=== PATIENT | male | born 1995 | race African-American/Black ===

== ENCOUNTER 2020-12-09 00:19 | Inpatient (IN) | payer OTHER ==
[~2020-12-09] VITALS: Ht 180.3 cm; Wt 73.9 kg
[2020-12-09] MEDS: MORPHINE SULFATE 2 MG/ML INJ. IV PRN ×5 (02:16→19:37)
[2020-12-09] MEDS ORDERED: ONDANSETRON PF 4 MG/2 ML VIAL. IVP PRN (02:30)
[2020-12-09] MEDS: AA 4.25 %/CALCIUM/LYTES/D5W 1,000 ML IV SCH ×2 (02:39→19:37)
[2020-12-09 03:00] VITALS: BP 128/73
[2020-12-09] MEDS ORDERED: PANTOPRAZOLE IV PUSH 40 MG VIAL. IVP ONE (04:00)
--- NOTE | 2020-12-09 06:32 | PDOC1 ---
History and Physical Date of Admission Date of Admission DATE: 12/09/20 TIME: 06:23 Identification/Chief Complaint Chief Complaint Abdominal pain Source Source: Chart review, Patient History of Present Illness History of Present Illness Patient is 25-year-old male with past medical history HIV, presents as a transfer from [facility] due to perforated gastric ulcer. He reports right upper quadrant and epigastric pain over the past 3 days, with associated nausea and vomiting. He states his pain is aggravated by movement. He initially took Tylenol for symptoms without improvement. Upon arrival in [facility] ER he was given morphine and IV fluids. Initial imaging with CT abdomen/pelvis showed moderate volume of pneumoperitoneum in the upper abdomen, suspicious for perforated gastric or duodenal ulcer. General surgery was notified at [facility], and patient was accepted in transfer for higher level of care. Past Medical History Past Medical History HIV, depression Past Surgical History Past Surgical History Reviewed with patient but denies surgical history Family History Family History Reviewed with patient but denies significant family history Social History Smoke: <1 pack per day ALCOHOL: occassional Drugs: None, Marijuana Current Medications Current Medications Current Medications Morphine Sulfate (Morphine Sulfate) 2 mg PRN Q2HR PRN IV MODERATE PAIN 4-6; Start 12/09/20 at 02:00 Morphine Sulfate (Morphine Sulfate) 4 mg PRN Q4HRS PRN IV SEVERE PAIN 7-10 Last administered on 12/09/20at 02:16; Start 12/09/20 at 02:00 Amino Acids/ Electrolytes/ Dextrose 1,000 ml @ 80 mls/hr [id number] IV Last administered on 12/09/20at 02:39; Start 12/09/20 at 02:00 Ondansetron HCl (Zofran) 4 mg PRN Q6HRS PRN IVP NAUSEA/VOMITING 1ST CHOICE Last administered on 12/09/20at 02:38; Start 12/09/20 at 02:30 Pantoprazole Sodium (PROTONIX VIAL for IV PUSH) 40 mg DAILYAC IVP ; Start 12/09 at 07:30 Pantoprazole Sodium (PROTONIX VIAL for IV PUSH) 40 mg 1X ONCE IVP Last administered on 12/09/20at 04:59; Start 12/09/20 at 04:00; Stop 12/09/20 at 04:01; Status DC Levofloxacin/ Dextrose 100 ml @ 100 mls/hr DAILY05 IV Last administered on 12/09/20at 06:20; Start 12/09/20 at 04:00 Metronidazole 100 ml @ 100 mls/hr Q12HR IV ; Start 12/09/20 at 09:00 Metronidazole 100 ml @ 100 mls/hr 1X ONCE IV Last administered on 12/09/20at 04:51; Start 12/09/20 at 04:00; Stop 12/09/20 at 04:59; Status DC Allergies Allergies: Coded Allergies: penicillin V (Verified Allergy, Intermediate, Hives, 12/09/20) ROS Review of System GENERAL: No history of weight change, weakness or fevers. SKIN: No bruising, hair changes or rashes. EYES: No blurred, double or loss of vision. NOSE AND THROAT: No history of nosebleeds, hoarseness or sore throat. HEART: Denies chest pain, denies palpitations. LUNGS: Denies cough, hemoptysis, wheezing or shortness of breath. GASTROINTESTINAL: Abdominal pain, nausea, vomiting. Denies diarrhea. GENITOURINARY: Denies dysuria, frequency, urgency, hematuria. NEUROLOGIC: Denies history of numbness, tingling, tremor or weakness. PSYCHIATRIC: Denies anxiety, denies depression. ENDOCRINE: No history of heat or cold intolerance, polyuria or polydipsia. EXTREMITIES: Denies muscle weakness, joint pain, pain on walking or stiffness. Physical Exam Physical Exam General: Alert, Oriented X3, Cooperative, moderate distress. HEENT: PERRLA, EOMI Lungs: Clear to auscultation, Normal air movement Heart: RRR, no murmurs Cardiovascular: S1, S2 Abdomen: Epigastric and right upper quadrant tenderness. Normal bowel sounds. Extremities: No clubbing, No cyanosis Skin: No rashes, No significant lesion Neuro: Normal speech, Normal tone, Sensation intact Psych/Mental Status: Mental status NL, Mood NL Vitals Vitals Vital Signs Date Time Temp Pulse Resp B/P (MAP) Pulse Ox O2 Delivery O2 Flow Rate FiO2 12/09/20 03:00 98.2 76 18 128/73 (91) 98 Room Air 98.2 Images Images [address] [address] IMAGING REPORT Signed PATIENT: NEERU CASILLAS ACCOUNT: [id number] : 1995 LOCATION: ER AGE: 25 SEX: M EXAM STATUS: REG ER ORD. PHYSICIAN: FABIAN HAN APRN REASON: abd pain PROCEDURE: CT ABDOMEN PELVIS WO CONTRAST Exam: CT abdomen/pelvis without intravenous contrast Indication: Abdominal pain Comparison: None Technique: Helical CT imaging performed of the abdomen and pelvis without the use of intravenous contrast. Sagittal and coronal reformats were obtained. One or more of the following individualized dose reduction techniques were utilized for this examination: 1. Automated exposure control 2. Adjustment of the mA and/or kV according to patient size 3. Use of iterative reconstruction technique. Findings: Inherently limited evaluation without intravenous contrast. Lower chest: Lung bases are clear. Heart is normal in size. Liver: Normal noncontrast appearance of the liver. Gallbladder/Biliary Tree: Normal. Pancreas: Normal. Spleen: Normal. Adrenal Glands: Normal Kidneys/Ureters/Bladder: Normal. Reproductive Organs: Normal. Stomach, small bowel, and colon: Moderate pneumoperitoneum in the upper abdomen, greatest anterior to the liver anterior upper abdomen. There is some free air extending along the gastrohepatic ligament and first portion of the duodenum. There is wall thickening and a small amount of fluid along the gastric antrum and first portion of the duodenum. No evidence of small bowel obstruction. Appendix is normal. Colon is normal in appearance. There is no pneumoperitoneum. Vasculature: No aortic aneurysm. Lymph Nodes: No lymphadenopathy. Peritoneum and retroperitoneum: Pneumoperitoneum, as above. Small amount of fluid in the upper abdomen. Bones: No acute osseous abnormality. IMPRESSION: 1. Moderate volume of pneumoperitoneum in the upper abdomen. Suspect perforated gastric or duodenal ulcer as there is wall thickening and small amount of fluid along the gastric antrum and first portion of the duodenum. 2. Results discussed by Dr. Nava with Martha Han in the ER at 9:50 PM on 12/08/2020 VTE Prophylaxis Ordered VTE Prophylaxis Devices: No VTE Pharmacological Prophylaxi: Yes Assessment/Plan Assessment/Plan Perforated gastric ulcer History HIV Plan: Consultation placed to general surgery We will continue to provide pain medication and antiemetics We will keep n.p.o. barring general surgery evaluation for possible surgical intervention We will also place consult to GI FEN - NPO PPX - Heparin FULL CODE Dispo - inpatient for above Justifications for Admission Other Justification WILFRED KING MD Dec 09, 2020 06:32
[2020-12-09 07:00] VITALS: BP 120/84
[2020-12-09] MEDS ORDERED: ACETAMINOPHEN 325 MG TABLET. PO PRN (07:30)
[2020-12-09] MEDS ORDERED: CALCIUM CARBONATE 500 MG TAB.CHEW PO PRN (07:30)
[2020-12-09] MEDS ORDERED: MAGNESIUM HYDROXIDE 2,400 MG/30 ML ORAL.SUSP. PO PRN (07:30)
[2020-12-09] MEDS ORDERED: MAG HYDROX/ALUMINUM HYD/SIMETH 30 ML ORAL.SUSP PO PRN (07:30)
[2020-12-09 07:41] LABS: BASO % 0 % (0-3); EOS # 0.3 x10^3/uL (0.0-0.7); EOS % 3 % (0-3); HEMATOCRIT 35.8 % (39.0-53.0); HEMOGLOBIN 11.9 g/dL (13.0-17.5); LYMPH # 1.8 x10^3/uL (1.0-4.8); LYMPH % 21 % (24-48); MEAN CORPUSCULAR HEMOGLOBIN 31 pg (25-35); MEAN CORPUSCULAR HGB CONC 33 g/dL (31-37); MEAN CORPUSCULAR VOLUME 93 fL (79-100); MONO # 0.9 x10^3/uL (0.0-1.1); MONO % 11 % (0-9); NEUT # 5.4 x10^3/uL (1.8-7.7); NEUT % 65 % (31-73); PLATELET COUNT 183 x10^3/uL (140-400); RED BLOOD COUNT 3.83 x10^6/uL (4.30-5.70); WHITE BLOOD COUNT 8.4 x10^3/uL (4.0-11.0)
[2020-12-09] MEDS: PANTOPRAZOLE IV PUSH 40 MG VIAL. IVP SCH (07:43)
[2020-12-09 07:55] LABS: CALCIUM 8.3 mg/dL (8.5-10.1); GFR 110.2; POTASSIUM 3.6 mmol/L (3.5-5.1)
[2020-12-09 08:30] LABS: PROTHROMBIN TIME PATIENT 13.4 SEC (11.7-14.0)
[2020-12-09] MEDS ORDERED: PROPOFOL 10 MG/ML (20ML) VIAL. IV ONE ×2 (08:30→10:52)
[2020-12-09] MEDS ORDERED: LIDOCAINE 2% PF 5 ML VIAL. ONE (08:31)
[2020-12-09] MEDS ORDERED: ROCURONIUM 50 MG/5 ML VIAL. ONE (08:31)
[2020-12-09] MEDS ORDERED: ONDANSETRON PF 4 MG/2 ML VIAL. ONE (08:31)
[2020-12-09] MEDS ORDERED: DEXAMETHASONE SOD PHOS 4 MG/ML VIAL ONE (08:31)
--- NOTE | 2020-12-09 09:13 | PDOC2 ---
GI CONSULT Date of Service: DATE: 12/09/20 TIME: 09:03 Reason For Consult: perforated ulcer HPI: HPI: 25 y/o male sent from [facility]. Upper abdominal pain awoke from sleep on Monday night. Associated w/ some nausea and vomiting though was able to eat some salad and beef jerky on Monday. Pain is worse when "the cold air hits it" and is now located more diffusely throughout abdomen. No similar symptoms in the past. At [facility]: WBC 10.5, Hgb 12.8, BUN 11, Cr 1.2, normal LFTs and lipase, negative COVID. CT showed moderate volume pneumoperitoneum in upper abdomen with wall thickening and small amount of fluid along the gastric antrum and first portion of the duodenum. He says he is scheduled for surgery at 2:00 p.m. today. Denies reflux/heartburn, dysphagia, diarrhea, hematemesis, hematochezia, melena, and weight loss. Might have been constipated recently (last stool on Monday). No previous EGD or colonoscopy. No h/o GB, liver, pancreas, or PUD history. Occasional ibuprofen for headaches and joint pains. H/o HIV on treatment - undetectable on 10/16/20. PMH: PMH: HIV, depression, eye surgery FH: Family History: No pertinent hx (denies PUD, IBD, GI cancers) Social History: Smoke: <1 pack per day ALCOHOL: occassional Drugs: Marijuana, Other (past meth) ROS: GEN: Denies fevers, chills, sweats HEENT: Denies blurred vision, sore throat CV: Denies chest pain RESP: Denies shortness of air, cough GI: Per HPI : Denies hematuria, dysuria ENDO: Denies weight changes NEURO: Denies confusion, dizziness MSK: Denies weakness, joint pain/swelling SKIN: Denies jaundice, pruritus Vitals: Vitals: Vital Signs Date Time Temp Pulse Resp B/P (MAP) Pulse Ox O2 Delivery O2 Flow Rate FiO2 12/09/20 07:00 99.3 79 18 120/84 (96) 98 Room Air 99.3 Labs: Labs: Laboratory Tests Test 12/09/20 06:35 12/09/20 08:00 White Blood Count 8.4 x10^3/uL (4.0-11.0) Red Blood Count 3.83 x10^6/uL (4.30-5.70) Hemoglobin 11.9 g/dL (13.0-17.5) Hematocrit 35.8 % (39.0-53.0) Mean Corpuscular Volume 93 fL (79-100) Mean Corpuscular Hemoglobin 31 pg (25-35) Mean Corpuscular Hemoglobin Concent 33 g/dL (31-37) Red Cell Distribution Width 14.0 % (11.5-14.5) Platelet Count 183 x10^3/uL (140-400) Neutrophils (%) (Auto) 65 % (31-73) Lymphocytes (%) (Auto) 21 % (24-48) Monocytes (%) (Auto) 11 % (0-9) Eosinophils (%) (Auto) 3 % (0-3) Basophils (%) (Auto) 0 % (0-3) Neutrophils # (Auto) 5.4 x10^3/uL (1.8-7.7) Lymphocytes # (Auto) 1.8 x10^3/uL (1.0-4.8) Monocytes # (Auto) 0.9 x10^3/uL (0.0-1.1) Eosinophils # (Auto) 0.3 x10^3/uL (0.0-0.7) Basophils # (Auto) 0.0 x10^3/uL (0.0-0.2) Sodium Level 142 mmol/L (136-145) Potassium Level 3.6 mmol/L (3.5-5.1) Chloride Level 107 mmol/L (98-107) Carbon Dioxide Level 25 mmol/L (21-32) Anion Gap 10 (6-14) Blood Urea Nitrogen 8 mg/dL (8-26) Creatinine 1.0 mg/dL (0.7-1.3) Estimated GFR (Cockcroft-Gault) 110.2 Glucose Level 88 mg/dL (70-99) Calcium Level 8.3 mg/dL (8.5-10.1) Prothrombin Time 13.4 SEC (11.7-14.0) Prothromb Time International Ratio 1.0 (0.8-1.1) Activated Partial Thromboplast Time 39 SEC (24-38) Allergies: Coded Allergies: penicillin V (Verified Allergy, Intermediate, Hives, 12/09/20) Medications: Current Medications Medications (Trade) Dose Ordered Sig/Umesh Route PRN Reason Start Time Stop Time Status Last Admin Dose Admin Morphine Sulfate (Morphine Sulfate) 2 mg PRN Q2HR PRN IV MODERATE PAIN 4-6 12/09/20 02:00 12/09/20 07:43 Morphine Sulfate (Morphine Sulfate) 4 mg PRN Q4HRS PRN IV SEVERE PAIN 7-10 12/09/20 02:00 12/09/20 02:16 Amino Acids/ Electrolytes/ Dextrose 1,000 ml @ 80 mls/hr [id number] IV 12/09/20 02:00 12/09/20 02:39 Ondansetron HCl (Zofran) 4 mg PRN Q6HRS PRN IVP NAUSEA/VOMITING 1ST CHOICE 12/09/20 02:30 12/09/20 02:38 Pantoprazole Sodium (PROTONIX VIAL for IV PUSH) 40 mg DAILYAC IVP 12/09/20 07:30 12/09/20 07:43 Pantoprazole Sodium (PROTONIX VIAL for IV PUSH) 40 mg 1X ONCE IVP 12/09/20 04:00 12/09/20 04:01 DC 12/09/20 04:59 Levofloxacin/ Dextrose 100 ml @ 100 mls/hr DAILY05 IV 12/09/20 04:00 12/09/20 06:20 Metronidazole 100 ml @ 100 mls/hr Q12HR IV 12/09/20 09:00 12/09/20 07:43 Metronidazole 100 ml @ 100 mls/hr 1X ONCE IV 12/09/20 04:00 12/09/20 04:59 DC 12/09/20 04:51 Imaging: Imaging: see HPI PE: GEN: was sleeping, some discomfort obvious upon waking HEENT: Atraumatic, PERRL LUNGS: CTAB HEART: RRR ABD: BS+, some distention, upper abdomen tender to light touch EXTREMITY: No edema SKIN: No rashes, no jaundice NEURO/PSYCH: A & O 3 A/P: A/P: Upper abdominal pain - acute onset 12/05 Mild anemia Pneumoperitoneum, possible /DU CRC screen - average risk H/o HIV Occasional NSAID -- Plans for OR. On IV PPI. Agree - will follow. LATONYA SMITH Dec 09, 2020 09:13
[2020-12-09] MEDS ORDERED: fentaNYL PF VIAL 100 MCG/2 ML VIAL ONE ×2 (09:20→10:27)
[2020-12-09] MEDS ORDERED: MIDAZOLAM HCL/PF 2 MG/2 ML VIAL. ONE (09:21)
--- NOTE | 2020-12-09 10:03 | PDOC2 ---
CONSULT Date of Consult Date of Consult DATE: 12/09/20 TIME: 10:00 Reason for Consult Reason for Consult: Abdominal pain abnormal CT scan Referring Physician Referring Physician: Oscar Identification/Chief Complaint Chief Complaint Abdominal pain Source Source: Chart review, Patient History of Present Illness Reason for Visit: 25-year-old male who woke up from sleep on Monday night with abdominal pain progressively worsening over the weekend and into the first part of the week became too unbearable and came to the emergency department further evaluation. He has been taking nonsteroidal anti-inflammatories for the past several days denies any history of ulcers. Some nausea no vomiting. History of HIV. Evaluation in the emergency department CT scan was performed which showed pneumoperitoneum with inflammation in and around the duodenum and stomach consistent with a perforated ulcer. Past Medical History Infectious disease: HIV Past Surgical History Past Surgical History: No pertinent history Family History Family History: No Significant Social History <1 pack per day ALCOHOL: occassional Drugs: Marijuana, Other (past meth) Current Medications Current Medications Current Medications Morphine Sulfate (Morphine Sulfate) 2 mg PRN Q2HR PRN IV MODERATE PAIN 4-6 Last administered on 12/09/20at 07:43; Start 12/09/20 at 02:00 Morphine Sulfate (Morphine Sulfate) 4 mg PRN Q4HRS PRN IV SEVERE PAIN 7-10 Last administered on 12/09/20 02:16; Start 12/09/20 at 02:00 Amino Acids/ Electrolytes/ Dextrose 1,000 ml @ 80 mls/hr [id number] IV Last administered on 12/09/20 02:39; Start 12/09/20 at 02:00 Ondansetron HCl (Zofran) 4 mg PRN Q6HRS PRN IVP NAUSEA/VOMITING 1ST CHOICE Last administered on 12/09/20at 02:38; Start 12/09/20 at 02:30 Pantoprazole Sodium (PROTONIX VIAL for IV PUSH) 40 mg DAILYAC IVP Last administered on 12/09/20 07:43; Start 12/09/20 at 07:30 Pantoprazole Sodium (PROTONIX VIAL for IV PUSH) 40 mg 1X ONCE IVP Last administered on 12/09/20at 04:59; Start 12/09/20 at 04:00; Stop 12/09/20 at 04:01; Status DC Levofloxacin/ Dextrose 100 ml @ 100 mls/hr DAILY05 IV Last administered on 12/09/20at 06:20; Start 12/09/20 at 04:00 Metronidazole 100 ml @ 100 mls/hr Q12HR IV Last administered on 12/09/20at 07:43; Start 12/09/20 at 09:00 Metronidazole 100 ml @ 100 mls/hr 1X ONCE IV Last administered on 12/09/20at 04:51; Start 12/09/20 at 04:00; Stop 12/09/20 at 04:59; Status DC Ondansetron HCl (Zofran) 4 mg PRN Q6HRS PRN IVP NAUSEA/VOMITING; Start 12/09/20 at 07:30 Al Hydroxide/Mg Hydroxide (Mylanta Plus Xs) 30 ml PRN Q3HRS PRN PO HEARTBURN / GAS; Start 12/09/20 at 07:30 Calcium Carbonate/ Glycine (Tums) 500 mg PRN Q3HRS PRN PO UPSET STOMACH; Start 12/09/20 at 07:30 Zolpidem Tartrate (Ambien) 5 mg PRN QHS PRN PO INSOMNIA, MAY REPEAT IN 1HR; Start 12/09/20 at 07:30 Acetaminophen (Tylenol) 650 mg PRN Q6HRS PRN PO Headaches, Temp > 101.5F; Start 12/09/20 at 07:30 Magnesium Hydroxide (Milk Of Magnesia) 2,400 mg PRN Q12HR PRN PO CONSTIPATION; Start 12/09/20 at 07:30 Heparin Sodium (Porcine) (Heparin Sodium) 5,000 unit Q8HRS SQ ; Start 12/09/20 at 14:00 Propofol (Diprivan) 200 mg STK-MED ONCE IV ; Start 12/09/20 at 08:30; Stop 12/09/20 at 08:31; Status DC Lidocaine HCl (Lidocaine Pf 2% Vial) 5 ml STK-MED ONCE .ROUTE ; Start 12/09/20 at 08:31; Stop 12/09/20 at 08:31; Status DC Dexamethasone Sodium Phosphate (Decadron) 4 mg STK-MED ONCE .ROUTE ; Start 12/09/20 at 08:31; Stop 12/09/20 at 08:31; Status DC Ondansetron HCl (Zofran) 4 mg STK-MED ONCE .ROUTE ; Start 12/09/20 at 08:31; Stop 12/09/20 at 08:31; Status DC Rocuronium [place] (Zemuron) 50 mg STK-MED ONCE .ROUTE ; Start 12/09/20 at 08:31; Stop 12/09/20 at 08:31; Status DC Fentanyl Citrate (Fentanyl 2ml Vial) 100 mcg STK-MED ONCE .ROUTE ; Start 12/09/20 at 09:20; Stop 12/09/20 at 09:21; Status DC Midazolam HCl (Versed) 2 mg STK-MED ONCE .ROUTE ; Start 12/09/20 at 09:21; Stop 12/09/20 at 09:21; Status DC Allergies Allergies: Coded Allergies: penicillin V (Verified Allergy, Intermediate, Hives, 12/09/20) ROS Gastrointestinal: Yes Nausea, Yes Abdominal Pain Physical Exam General: Alert, Oriented X3, Cooperative, moderate distress HEENT: Atraumatic, EOMI Lungs: Clear to auscultation, Normal air movement Heart: Regular rate, No murmurs Abdomen: Soft, Other (Diffusely tender to palpation no peritoneal signs hypoactive bowel sounds) Extremities: No edema Skin: No significant lesion Neuro: Normal speech Psych/Mental Status: Mental status NL Vitals VITALS Vital Signs Date Time Temp Pulse Resp B/P (MAP) Pulse Ox O2 Delivery O2 Flow Rate FiO2 12/09/20 09:51 100.3 79 15 133/69 97 Room Air 100.3 Labs Labs Laboratory Tests Test 12/09/20 06:35 12/09/20 08:00 White Blood Count 8.4 x10^3/uL (4.0-11.0) Red Blood Count 3.83 x10^6/uL (4.30-5.70) Hemoglobin 11.9 g/dL (13.0-17.5) Hematocrit 35.8 % (39.0-53.0) Mean Corpuscular Volume 93 fL (79-100) Mean Corpuscular Hemoglobin 31 pg (25-35) Mean Corpuscular Hemoglobin Concent 33 g/dL (31-37) Red Cell Distribution Width 14.0 % (11.5-14.5) Platelet Count 183 x10^3/uL (140-400) Neutrophils (%) (Auto) 65 % (31-73) Lymphocytes (%) (Auto) 21 % (24-48) Monocytes (%) (Auto) 11 % (0-9) Eosinophils (%) (Auto) 3 % (0-3) Basophils (%) (Auto) 0 % (0-3) Neutrophils # (Auto) 5.4 x10^3/uL (1.8-7.7) Lymphocytes # (Auto) 1.8 x10^3/uL (1.0-4.8) Monocytes # (Auto) 0.9 x10^3/uL (0.0-1.1) Eosinophils # (Auto) 0.3 x10^3/uL (0.0-0.7) Basophils # (Auto) 0.0 x10^3/uL (0.0-0.2) Sodium Level 142 mmol/L (136-145) Potassium Level 3.6 mmol/L (3.5-5.1) Chloride Level 107 mmol/L (98-107) Carbon Dioxide Level 25 mmol/L (21-32) Anion Gap 10 (6-14) Blood Urea Nitrogen 8 mg/dL (8-26) Creatinine 1.0 mg/dL (0.7-1.3) Estimated GFR (Cockcroft-Gault) 110.2 Glucose Level 88 mg/dL (70-99) Calcium Level 8.3 mg/dL (8.5-10.1) Prothrombin Time 13.4 SEC (11.7-14.0) Prothromb Time International Ratio 1.0 (0.8-1.1) Activated Partial Thromboplast Time 39 SEC (24-38) Laboratory Tests Test 12/09/20 06:35 12/09/20 08:00 White Blood Count 8.4 x10^3/uL (4.0-11.0) Red Blood Count 3.83 x10^6/uL (4.30-5.70) Hemoglobin 11.9 g/dL (13.0-17.5) Hematocrit 35.8 % (39.0-53.0) Mean Corpuscular Volume 93 fL (79-100) Mean Corpuscular Hemoglobin 31 pg (25-35) Mean Corpuscular Hemoglobin Concent 33 g/dL (31-37) Red Cell Distribution Width 14.0 % (11.5-14.5) Platelet Count 183 x10^3/uL (140-400) Neutrophils (%) (Auto) 65 % (31-73) Lymphocytes (%) (Auto) 21 % (24-48) Monocytes (%) (Auto) 11 % (0-9) Eosinophils (%) (Auto) 3 % (0-3) Basophils (%) (Auto) 0 % (0-3) Neutrophils # (Auto) 5.4 x10^3/uL (1.8-7.7) Lymphocytes # (Auto) 1.8 x10^3/uL (1.0-4.8) Monocytes # (Auto) 0.9 x10^3/uL (0.0-1.1) Eosinophils # (Auto) 0.3 x10^3/uL (0.0-0.7) Basophils # (Auto) 0.0 x10^3/uL (0.0-0.2) Sodium Level 142 mmol/L (136-145) Potassium Level 3.6 mmol/L (3.5-5.1) Chloride Level 107 mmol/L (98-107) Carbon Dioxide Level 25 mmol/L (21-32) Anion Gap 10 (6-14) Blood Urea Nitrogen 8 mg/dL (8-26) Creatinine 1.0 mg/dL (0.7-1.3) Estimated GFR (Cockcroft-Gault) 110.2 Glucose Level 88 mg/dL (70-99) Calcium Level 8.3 mg/dL (8.5-10.1) Prothrombin Time 13.4 SEC (11.7-14.0) Prothromb Time International Ratio 1.0 (0.8-1.1) Activated Partial Thromboplast Time 39 SEC (24-38) Assessment/Plan Assessment/Plan Perforated viscus likely duodenal or gastric ulcer plan for exploratory laparotomy with repair of ulcer and Theodore patch. BENNY SOLITARIO MD Dec 09, 2020 10:03
[2020-12-09] MEDS ORDERED: FAMOTIDINE 20 MG/2 ML VIAL ONE (10:28)
[2020-12-09] MEDS ORDERED: NEOSTIGMINE METHYLSULFATE 5 MG/5 ML SYRINGE. ONE (10:36)
--- NOTE | 2020-12-09 11:05 | PDOC4 ---
Operative Note Operative Note Date: December 092020 at 11 AM Preoperative diagnosis: Perforated duodenal ulcer Postoperative diagnosis: Same Procedure: Exploratory laparotomy with closure of duodenal ulcer and Theodore patc h Surgeon: Yasir Specimen: None Dictation: Patient is 25-year-old male admitted to the hospital through the emergency department with pneumoperitoneum. Procedure of exploratory laparotomy with repair of duodenal ulcer and Theodore patch was explained to the patient detail risk-benefit were also discussed including bleeding infection alternatives this procedure also discussed with patient who seemed to understand and gave a verbal written consent to have the procedure performed. Patient was taken to the operating room placed in the supine position general anesthesia was initiated once patient was sleeping intubated his abdomen was prepped and draped usual sterile fashion using ChloraPrep. Midline incision was made from the xiphoid process for about 6 cm this carried down through the subcutaneous tissues using electrocautery right hemostasis the fascia was opened with electrocautery peritoneum was opened Metzenbaum scissors were then further open electrocautery. There was some clear fluid which was suctioned from the abdomen the stomach was evaluated which appeared to be normal coming into the duodenum just distal to the duodenum was a small opening that actually had quite a bit of fibrinous material. 3-0 PDS was used as suture through the duodenum on the pr oximal distal side around the perforation the omentum was then laid over the ulcer and the sutures were tied closing the hole and attaching the omentum to the duodenum the omentum was further tacked to the duodenum with some 3-0 Vicryl intermittent sutures. A 7 Icelandic flat SARAH drain was then placed through separate stab incision in the right upper quadrant laid along the duodenal sweep. This was sewn into place with a 3-0 Vicryl. The abdomen was irrigated and suctioned dry with normal saline fascia was then closed with a running oh looped PDS deep subcutaneous layer was closed with a running 3-0 Vicryl and the skin was approximated for subcuticular Monocryl Mastisol Steri-Strips and island dressings were applied. Patient was awakened and extubated operating room taken to recovery in stable condition all sponge instrument needle counts listed as correct estimated blood loss 30 mL. BENNY SOLITARIO MD Dec 09, 2020 11:05
[2020-12-09] MEDS ORDERED: IV NORMAL SALINE 1000ML BAG 1,000 ML IV ONE (11:30)
[2020-12-09] MEDS ORDERED: PROCHLORPERAZINE 10 MG/2 ML VIAL. ONE (11:44)
[2020-12-09] MEDS ORDERED: IV RINGERS,LACTATED 1000ML 1,000 ML IV SCH (11:45)
[2020-12-09] MEDS ORDERED: fentaNYL PF VIAL 100 MCG/2 ML VIAL IVP PRN ×2 (11:45)
[2020-12-09] MEDS ORDERED: HYDROmorphone 2 MG/ML VIAL IVP PRN (11:45)
[2020-12-09] MEDS: MORPHINE SULFATE 2 MG/ML INJ. IVP PRN ×4 (11:59→13:19)
[2020-12-09] MEDS: PROCHLORPERAZINE 10 MG/2 ML VIAL. IVP PRN ×2 (12:00→13:18)
[2020-12-09] MEDS ORDERED: hydrALAZINE 20 MG/ML VIAL. IVP PRN (12:45)
[2020-12-09] MEDS: SUCRALFATE 1 GM/10 ML ORAL.SUSP. NG SCH ×3 (13:00→21:52)
[2020-12-09] MEDS: HEPARIN for SUB-Q USE 5,000 UNIT/ML VIAL. SQ SCH ×2 (13:59→21:59)
[2020-12-09 15:00] VITALS: BP 145/95
[2020-12-09 19:00] VITALS: BP 147/88
[2020-12-09] MEDS: ZOLPIDEM 5 MG TABLET. PO PRN (21:52)
[2020-12-09 22:59] VITALS: BP 140/87
[2020-12-10] MEDS: MORPHINE SULFATE 2 MG/ML INJ. IV PRN ×7 (00:11→22:01)
[2020-12-10 03:44] VITALS: BP 163/89
[2020-12-10] MEDS: ONDANSETRON PF 4 MG/2 ML VIAL. IVP PRN ×2 (04:12→22:10)
[2020-12-10 04:55] LABS: BASO % 0 % (0-3); EOS % 0 % (0-3); HEMATOCRIT 35.4 % (39.0-53.0); HEMOGLOBIN 12.1 g/dL (13.0-17.5); LYMPH % 19 % (24-48); MEAN CORPUSCULAR HEMOGLOBIN 32 pg (25-35); MEAN CORPUSCULAR HGB CONC 34 g/dL (31-37); MEAN CORPUSCULAR VOLUME 93 fL (79-100); MONO # 1.2 x10^3/uL (0.0-1.1); MONO % 11 % (0-9); NEUT # 7.3 x10^3/uL (1.8-7.7); NEUT % 70 % (31-73); PLATELET COUNT 212 x10^3/uL (140-400); RED BLOOD COUNT 3.82 x10^6/uL (4.30-5.70); RED CELL DISTRIBUTION WIDTH 13.9 % (11.5-14.5); WHITE BLOOD COUNT 10.5 x10^3/uL (4.0-11.0)
[2020-12-10 05:11] LABS: CALCIUM 8.6 mg/dL (8.5-10.1); GFR 110.2; POTASSIUM 3.5 mmol/L (3.5-5.1)
[2020-12-10] MEDS: HEPARIN for SUB-Q USE 5,000 UNIT/ML VIAL. SQ SCH ×3 (06:00→22:06)
[2020-12-10 07:15] VITALS: BP 139/84
[2020-12-10] MEDS: AA 4.25 %/CALCIUM/LYTES/D5W 1,000 ML IV SCH ×2 (08:05→15:30)
[2020-12-10] MEDS: PANTOPRAZOLE IV PUSH 40 MG VIAL. IVP SCH (08:05)
--- NOTE | 2020-12-10 09:08 | PDOC ---
Date of Service: DATE: 12/10/20 TIME: 09:05 Subjective: Subjective: NG uncomfortable - "making me gag." Feels like could pass flatus but hasn't. Objective: Vital Signs: Vital Signs Date Time Temp Pulse Resp B/P (MAP) Pulse Ox O2 Delivery O2 Flow Rate FiO2 12/10/20 09:01 Room Air 12/10/20 07:15 98.5 81 20 139/84 (102) 96 98.5 12/09/20 16:07 10.0 Labs: Laboratory Tests Test 12/10/20 03:40 White Blood Count 10.5 x10^3/uL Red Blood Count 3.82 x10^6/uL Hemoglobin 12.1 g/dL Hematocrit 35.4 % Mean Corpuscular Volume 93 fL Mean Corpuscular Hemoglobin 32 pg Mean Corpuscular Hemoglobin Concent 34 g/dL Red Cell Distribution Width 13.9 % Platelet Count 212 x10^3/uL Neutrophils (%) (Auto) 70 % Lymphocytes (%) (Auto) 19 % Monocytes (%) (Auto) 11 % Eosinophils (%) (Auto) 0 % Basophils (%) (Auto) 0 % Neutrophils # (Auto) 7.3 x10^3/uL Lymphocytes # (Auto) 2.0 x10^3/uL Monocytes # (Auto) 1.2 x10^3/uL Eosinophils # (Auto) 0.0 x10^3/uL Basophils # (Auto) 0.0 x10^3/uL Sodium Level 139 mmol/L Potassium Level 3.5 mmol/L Chloride Level 104 mmol/L Carbon Dioxide Level 25 mmol/L Anion Gap 10 Blood Urea Nitrogen 10 mg/dL Creatinine 1.0 mg/dL Estimated GFR (Cockcroft-Gault) 110.2 Glucose Level 116 mg/dL Calcium Level 8.6 mg/dL PE: GEN: NAD LUNGS: CTAB HEART: RRR ABD: quiet, soft, some discomfort, NG canister w/ about 300cc dark material NEURO/PSYCH: A & O 3 A/P: Perf DU s/ Theodore patch H/o HIV - undetectable 10/2020 -- Continue per surgery. Justicifation of Admission Dx: Justifications for Admission: Justification of Admission Dx: Yes LATONYA SMITH Dec 10, 2020 09:08
--- NOTE | 2020-12-10 09:18 | PDOC ---
ERNESTO BRUNNER SYSTEMS REQUIREMENTS PLANNER 12/10/20 0918: SURGICAL PROGRESS NOTE DATE: 12/10/20 TIME: 09:17 Subjective ng makes him gag, sore throat Vital Signs Vital Signs Date Time Temp Pulse Resp B/P (MAP) Pulse Ox O2 Delivery O2 Flow Rate FiO2 12/10/20 09:01 Room Air 12/10/20 07:15 98.5 81 20 139/84 (102) 96 98.5 12/09/20 16:07 10.0 I&O Intake and Output 12/10/20 07:00 Intake Total 1400 ml Output Total 2270 ml Balance -870 ml Intake Oral 0 ml IV Total 1400 ml Output Urine Total 1950 ml Stool Total 0 ml Gastric Drainage Total 260 ml Drainage Total 30 ml Estimated Blood Loss 30 ml General: Alert, Cooperative HEENT: Other (ng in place) Abdomen: Soft, Other (dressing dry) Labs Laboratory Tests Test 12/09/20 06:35 12/09/20 08:00 12/10/20 03:40 White Blood Count 8.4 x10^3/uL (4.0-11.0) 10.5 x10^3/uL (4.0-11.0) Red Blood Count 3.83 x10^6/uL (4.30-5.70) 3.82 x10^6/uL (4.30-5.70) Hemoglobin 11.9 g/dL (13.0-17.5) 12.1 g/dL (13.0-17.5) Hematocrit 35.8 % (39.0-53.0) 35.4 % (39.0-53.0) Mean Corpuscular Volume 93 fL (79-100) 93 fL (79-100) Mean Corpuscular Hemoglobin 31 pg (25-35) 32 pg (25-35) Mean Corpuscular Hemoglobin Concent 33 g/dL (31-37) 34 g/dL (31-37) Red Cell Distribution Width 14.0 % (11.5-14.5) 13.9 % (11.5-14.5) Platelet Count 183 x10^3/uL (140-400) 212 x10^3/uL (140-400) Neutrophils (%) (Auto) 65 % (31-73) 70 % (31-73) Lymphocytes (%) (Auto) 21 % (24-48) 19 % (24-48) Monocytes (%) (Auto) 11 % (0-9) 11 % (0-9) Eosinophils (%) (Auto) 3 % (0-3) 0 % (0-3) Basophils (%) (Auto) 0 % (0-3) 0 % (0-3) Neutrophils # (Auto) 5.4 x10^3/uL (1.8-7.7) 7.3 x10^3/uL (1.8-7.7) Lymphocytes # (Auto) 1.8 x10^3/uL (1.0-4.8) 2.0 x10^3/uL (1.0-4.8) Monocytes # (Auto) 0.9 x10^3/uL (0.0-1.1) 1.2 x10^3/uL (0.0-1.1) Eosinophils # (Auto) 0.3 x10^3/uL (0.0-0.7) 0.0 x10^3/uL (0.0-0.7) Basophils # (Auto) 0.0 x10^3/uL (0.0-0.2) 0.0 x10^3/uL (0.0-0.2) Sodium Level 142 mmol/L (136-145) 139 mmol/L (136-145) Potassium Level 3.6 mmol/L (3.5-5.1) 3.5 mmol/L (3.5-5.1) Chloride Level 107 mmol/L (98-107) 104 mmol/L (98-107) Carbon Dioxide Level 25 mmol/L (21-32) 25 mmol/L (21-32) Anion Gap 10 (6-14) 10 (6-14) Blood Urea Nitrogen 8 mg/dL (8-26) 10 mg/dL (8-26) Creatinine 1.0 mg/dL (0.7-1.3) 1.0 mg/dL (0.7-1.3) Estimated GFR (Cockcroft-Gault) 110.2 110.2 Glucose Level 88 mg/dL (70-99) 116 mg/dL (70-99) Calcium Level 8.3 mg/dL (8.5-10.1) 8.6 mg/dL (8.5-10.1) Prothrombin Time 13.4 SEC (11.7-14.0) Prothromb Time International Ratio 1.0 (0.8-1.1) Activated Partial Thromboplast Time 39 SEC (24-38) Laboratory Tests Test 12/10/20 03:40 White Blood Count 10.5 x10^3/uL (4.0-11.0) Red Blood Count 3.82 x10^6/uL (4.30-5.70) Hemoglobin 12.1 g/dL (13.0-17.5) Hematocrit 35.4 % (39.0-53.0) Mean Corpuscular Volume 93 fL (79-100) Mean Corpuscular Hemoglobin 32 pg (25-35) Mean Corpuscular Hemoglobin Concent 34 g/dL (31-37) Red Cell Distribution Width 13.9 % (11.5-14.5) Platelet Count 212 x10^3/uL (140-400) Neutrophils (%) (Auto) 70 % (31-73) Lymphocytes (%) (Auto) 19 % (24-48) Monocytes (%) (Auto) 11 % (0-9) Eosinophils (%) (Auto) 0 % (0-3) Basophils (%) (Auto) 0 % (0-3) Neutrophils # (Auto) 7.3 x10^3/uL (1.8-7.7) Lymphocytes # (Auto) 2.0 x10^3/uL (1.0-4.8) Monocytes # (Auto) 1.2 x10^3/uL (0.0-1.1) Eosinophils # (Auto) 0.0 x10^3/uL (0.0-0.7) Basophils # (Auto) 0.0 x10^3/uL (0.0-0.2) Sodium Level 139 mmol/L (136-145) Potassium Level 3.5 mmol/L (3.5-5.1) Chloride Level 104 mmol/L (98-107) Carbon Dioxide Level 25 mmol/L (21-32) Anion Gap 10 (6-14) Blood Urea Nitrogen 10 mg/dL (8-26) Creatinine 1.0 mg/dL (0.7-1.3) Estimated GFR (Cockcroft-Gault) 110.2 Glucose Level 116 mg/dL (70-99) Calcium Level 8.6 mg/dL (8.5-10.1) Assessment/Plan ng for now, bowel rest, abx, ppi Justicifation of Admission Dx: Justifications for Admission: Justification of Admission Dx: Yes BENNY SOLITARIO MD 12/10/20 1609: SURGICAL PROGRESS NOTE Assessment/Plan Agree with Barbara's assessment and plan ERNESTO BRUNNER APRN Dec 10, 2020 09:18 BENNY SOLITARIO MD Dec 10, 2020 16:09
[2020-12-10] MEDS: SUCRALFATE 1 GM/10 ML ORAL.SUSP. NG SCH ×4 (09:29→21:50)
[2020-12-10] MEDS: PHENOL ORAL SPRAY 177ML BOTTLE. PO PRN ×2 (09:32→12:36)
--- NOTE | 2020-12-10 09:39 | PDOC ---
[employer] PROGRESS NOTE Date of Service DOS: DATE: 12/10/20 TIME: 09:36 Chief Complaint Chief Complaint Perforated gastric ulcer History HIV Plan: Consultation placed to general surgery We will continue to provide pain medication and antiemetics We will keep n.p.o. barring general surgery evaluation for possible surgical intervention We will also place consult to GI FEN - NPO PPX - Heparin FULL CODE Dispo - inpatient for above History of Present Illness History of Present Illness Patient is 25-year-old male with past medical history HIV, presents as a transfer from [facility] due to perforated gastric ulcer. He reports right upper quadrant and epigastric pain over the past 3 days, with associated nausea and vomiting. He states his pain is aggravated by movement. He initially took Tylenol for symptoms without improvement. Upon arrival in [facility] ER he was given morphine and IV fluids. Initial imaging with CT abdomen/pelvis showed moderate volume of pneumoperitoneum in the upper abdomen, suspicious for perforated gastric or duodenal ulcer. General surgery was notified at [facility], and patient was accepted in transfer for higher level of care. 12/10: POD #1, s/p exploratory laparotomy with closure of duodenal ulcer and Theodore patch. Afebrile. Had NG placed yesterday for bowel rest. Feels the need to "poot"; denies bowel movement. We will continue IV antibiotics and PPI. Vitals/I&O Vitals/I&O: Vital Signs Date Time Temp Pulse Resp B/P (MAP) Pulse Ox O2 Delivery O2 Flow Rate FiO2 12/10/20 09:01 Room Air 12/10/20 07:15 98.5 81 20 139/84 (102) 96 98.5 12/09/20 16:07 10.0 I & O 12/09/20 12/09/20 12/10/20 15:00 23:00 07:00 Intake Total 1400 ml 0 ml Output Total 410 ml 1250 ml 610 ml Balance 990 ml -1250 ml -610 ml Physical Exam General: Alert, Oriented X3, Cooperative, mild distress, Other (NG tube in place) Heart: Regular rate, No murmurs Lungs: Clear Abdomen: Soft, Other (dressing dry) Extremities: No clubbing, No cyanosis, No edema Skin: No rashes, No significant lesion Labs Labs: Laboratory Tests Test 12/10/20 03:40 White Blood Count 10.5 x10^3/uL (4.0-11.0) Red Blood Count 3.82 x10^6/uL (4.30-5.70) Hemoglobin 12.1 g/dL (13.0-17.5) Hematocrit 35.4 % (39.0-53.0) Mean Corpuscular Volume 93 fL (79-100) Mean Corpuscular Hemoglobin 32 pg (25-35) Mean Corpuscular Hemoglobin Concent 34 g/dL (31-37) Red Cell Distribution Width 13.9 % (11.5-14.5) Platelet Count 212 x10^3/uL (140-400) Neutrophils (%) (Auto) 70 % (31-73) Lymphocytes (%) (Auto) 19 % (24-48) Monocytes (%) (Auto) 11 % (0-9) Eosinophils (%) (Auto) 0 % (0-3) Basophils (%) (Auto) 0 % (0-3) Neutrophils # (Auto) 7.3 x10^3/uL (1.8-7.7) Lymphocytes # (Auto) 2.0 x10^3/uL (1.0-4.8) Monocytes # (Auto) 1.2 x10^3/uL (0.0-1.1) Eosinophils # (Auto) 0.0 x10^3/uL (0.0-0.7) Basophils # (Auto) 0.0 x10^3/uL (0.0-0.2) Sodium Level 139 mmol/L (136-145) Potassium Level 3.5 mmol/L (3.5-5.1) Chloride Level 104 mmol/L (98-107) Carbon Dioxide Level 25 mmol/L (21-32) Anion Gap 10 (6-14) Blood Urea Nitrogen 10 mg/dL (8-26) Creatinine 1.0 mg/dL (0.7-1.3) Estimated GFR (Cockcroft-Gault) 110.2 Glucose Level 116 mg/dL (70-99) Calcium Level 8.6 mg/dL (8.5-10.1) Comment Review of Relevant I have reviewed the following items marcelina (where applicable) has been applied. Medications: Current Medications Medications (Trade) Dose Ordered Sig/Umesh Route PRN Reason Start Time Stop Time Status Last Admin Dose Admin Heparin Sodium (Porcine) (Heparin Sodium) 5,000 unit Q8HRS SQ 12/09/20 14:00 12/10/20 06:00 Sucralfate (Carafate Oral Susp) 1 gm QID NG 12/09/20 13:00 12/09/20 21:52 Fentanyl Citrate (Fentanyl 2ml Vial) 50 mcg PRN Q5MIN PRN IVP MODERATE PAIN 4-6 12/09/20 11:45 12/10/20 11:44 12/09/20 21:52 Morphine Sulfate (Morphine Sulfate) 1 mg PRN Q10MIN PRN IVP SEVERE PAIN 7-10 12/09/20 11:45 12/10/20 11:44 12/09/20 13:19 Prochlorperazine Edisylate (Compazine) 5 mg PACU PRN PRN IVP NAUSEA, MRX1 12/09/20 11:45 12/10/20 11:44 12/09/20 13:18 Sodium Chloride 1,000 ml @ 125 mls/hr 1X ONCE IV 12/09/20 11:30 12/09/20 19:29 DC 12/09/20 11:30 Justifications for Admission General Conditions Other justification for admit: Perforated gastric ulcer Other Justification WILFRED KING MD Dec 10, 2020 09:39
[2020-12-10 11:05] VITALS: BP 142/89
[2020-12-10 15:09] VITALS: BP 145/96
--- NOTE | 2020-12-10 18:52 | RAD ---
XR ABDOMEN 1V INDICATION: Verify NG placement COMPARISON: CT 12/09/2019. FINDINGS: Enteric tube with tip overlying the upper stomach, sidehole overlying the distal esophagus Nonobstructive bowel gas pattern. No free air on this limited supine image. Limited view of the lower chest demonstrates no acute abnormality. No acute osseous abnormality. IMPRESSION: Enteric tube with tip overlying the upper stomach, sidehole overlying the distal esophagus Electronically signed by: Eleuterio Victoria MD (12/10/2020 6:50 PM) [facility]
[2020-12-10 19:00] VITALS: BP 133/87
[2020-12-10 23:00] VITALS: BP 150/85
[2020-12-11] MEDS: MORPHINE SULFATE 2 MG/ML INJ. IV PRN ×5 (01:01→21:24)
[2020-12-11] MEDS: AA 4.25 %/CALCIUM/LYTES/D5W 1,000 ML IV SCH ×2 (01:01→16:30)
--- NOTE | 2020-12-11 02:00 | NUR ---
Patient removed NG tube at 0200. Patient stated he woke up and the tube was in his hand. No c/o nausea or vomiting. Patient remains NPO. Will continue to monitor.
[2020-12-11 03:00] VITALS: BP 139/93
[2020-12-11] MEDS: HEPARIN for SUB-Q USE 5,000 UNIT/ML VIAL. SQ SCH ×3 (06:12→21:04)
[2020-12-11 07:00] VITALS: BP 130/84
[2020-12-11 07:27] LABS: BASO % 0 % (0-3); EOS # 0.2 x10^3/uL (0.0-0.7); EOS % 2 % (0-3); HEMATOCRIT 36.2 % (39.0-53.0); HEMOGLOBIN 11.8 g/dL (13.0-17.5); LYMPH # 2.1 x10^3/uL (1.0-4.8); LYMPH % 26 % (24-48); MEAN CORPUSCULAR HEMOGLOBIN 30 pg (25-35); MEAN CORPUSCULAR HGB CONC 33 g/dL (31-37); MEAN CORPUSCULAR VOLUME 92 fL (79-100); MONO % 12 % (0-9); NEUT # 4.7 x10^3/uL (1.8-7.7); NEUT % 59 % (31-73); PLATELET COUNT 244 x10^3/uL (140-400); RED BLOOD COUNT 3.93 x10^6/uL (4.30-5.70); RED CELL DISTRIBUTION WIDTH 13.6 % (11.5-14.5); WHITE BLOOD COUNT 7.9 x10^3/uL (4.0-11.0)
[2020-12-11 07:50] LABS: CALCIUM 9.3 mg/dL (8.5-10.1); GFR 110.2; POTASSIUM 3.7 mmol/L (3.5-5.1)
[2020-12-11] MEDS: PANTOPRAZOLE IV PUSH 40 MG VIAL. IVP SCH (07:51)
[2020-12-11] MEDS: SUCRALFATE 1 GM/10 ML ORAL.SUSP. NG SCH ×4 (08:51→20:55)
--- NOTE | 2020-12-11 09:28 | PDOC ---
Date of Service: DATE: 12/11/20 TIME: 09:26 Subjective: Subjective: NG out last night. Passing flatus. Says tolerating a liquid medication. Feels a little better today. Objective: Vital Signs: Vital Signs Date Time Temp Pulse Resp B/P (MAP) Pulse Ox O2 Delivery O2 Flow Rate FiO2 12/11/20 07:00 98.7 62 18 130/84 (99) 94 Room Air 98.7 Labs: Laboratory Tests Test 12/11/20 06:40 White Blood Count 7.9 x10^3/uL Red Blood Count 3.93 x10^6/uL Hemoglobin 11.8 g/dL Hematocrit 36.2 % Mean Corpuscular Volume 92 fL Mean Corpuscular Hemoglobin 30 pg Mean Corpuscular Hemoglobin Concent 33 g/dL Red Cell Distribution Width 13.6 % Platelet Count 244 x10^3/uL Neutrophils (%) (Auto) 59 % Lymphocytes (%) (Auto) 26 % Monocytes (%) (Auto) 12 % Eosinophils (%) (Auto) 2 % Basophils (%) (Auto) 0 % Neutrophils # (Auto) 4.7 x10^3/uL Lymphocytes # (Auto) 2.1 x10^3/uL Monocytes # (Auto) 1.0 x10^3/uL Eosinophils # (Auto) 0.2 x10^3/uL Basophils # (Auto) 0.0 x10^3/uL Sodium Level 141 mmol/L Potassium Level 3.7 mmol/L Chloride Level 103 mmol/L Carbon Dioxide Level 28 mmol/L Anion Gap 10 Blood Urea Nitrogen 11 mg/dL Creatinine 1.0 mg/dL Estimated GFR (Cockcroft-Gault) 110.2 Glucose Level 112 mg/dL Calcium Level 9.3 mg/dL PE: GEN: NAD LUNGS: CTAB HEART: RRR ABD: quiet, some tenderness, SARAH reddish NEURO/PSYCH: A & O 3 A/P: Perf DU s/ Theodore patch H/o HIV on treatment -- NGT/diet per surgery. Justicifation of Admission Dx: Justifications for Admission: Justification of Admission Dx: Yes LATONYA SMITH Dec 11, 2020 09:28
--- NOTE | 2020-12-11 10:08 | PDOC ---
ERNESTO BRUNNER SUPERVISOR PURIFICATION 12/11/20 1008: SURGICAL PROGRESS NOTE DATE: 12/11/20 TIME: 10:06 Subjective ng came out accidentally no n/v Vital Signs Vital Signs Date Time Temp Pulse Resp B/P (MAP) Pulse Ox O2 Delivery O2 Flow Rate FiO2 12/11/20 07:00 98.7 62 18 130/84 (99) 94 Room Air 98.7 I&O Intake and Output 12/11/20 07:00 Intake Total 960 ml Output Total 1070 ml Balance -110 ml Intake Oral 0 ml Other 960 ml Output Urine Total 900 ml Gastric Drainage Total 150 ml Drainage Total 20 ml General: Alert, Oriented X3, Cooperative Abdomen: Soft, Other (stacia serosang, dressing dry) Labs Laboratory Tests Test 12/10/20 03:40 12/11/20 06:40 White Blood Count 10.5 x10^3/uL (4.0-11.0) 7.9 x10^3/uL (4.0-11.0) Red Blood Count 3.82 x10^6/uL (4.30-5.70) 3.93 x10^6/uL (4.30-5.70) Hemoglobin 12.1 g/dL (13.0-17.5) 11.8 g/dL (13.0-17.5) Hematocrit 35.4 % (39.0-53.0) 36.2 % (39.0-53.0) Mean Corpuscular Volume 93 fL (79-100) 92 fL (79-100) Mean Corpuscular Hemoglobin 32 pg (25-35) 30 pg (25-35) Mean Corpuscular Hemoglobin Concent 34 g/dL (31-37) 33 g/dL (31-37) Red Cell Distribution Width 13.9 % (11.5-14.5) 13.6 % (11.5-14.5) Platelet Count 212 x10^3/uL (140-400) 244 x10^3/uL (140-400) Neutrophils (%) (Auto) 70 % (31-73) 59 % (31-73) Lymphocytes (%) (Auto) 19 % (24-48) 26 % (24-48) Monocytes (%) (Auto) 11 % (0-9) 12 % (0-9) Eosinophils (%) (Auto) 0 % (0-3) 2 % (0-3) Basophils (%) (Auto) 0 % (0-3) 0 % (0-3) Neutrophils # (Auto) 7.3 x10^3/uL (1.8-7.7) 4.7 x10^3/uL (1.8-7.7) Lymphocytes # (Auto) 2.0 x10^3/uL (1.0-4.8) 2.1 x10^3/uL (1.0-4.8) Monocytes # (Auto) 1.2 x10^3/uL (0.0-1.1) 1.0 x10^3/uL (0.0-1.1) Eosinophils # (Auto) 0.0 x10^3/uL (0.0-0.7) 0.2 x10^3/uL (0.0-0.7) Basophils # (Auto) 0.0 x10^3/uL (0.0-0.2) 0.0 x10^3/uL (0.0-0.2) Sodium Level 139 mmol/L (136-145) 141 mmol/L (136-145) Potassium Level 3.5 mmol/L (3.5-5.1) 3.7 mmol/L (3.5-5.1) Chloride Level 104 mmol/L (98-107) 103 mmol/L (98-107) Carbon Dioxide Level 25 mmol/L (21-32) 28 mmol/L (21-32) Anion Gap 10 (6-14) 10 (6-14) Blood Urea Nitrogen 10 mg/dL (8-26) 11 mg/dL (8-26) Creatinine 1.0 mg/dL (0.7-1.3) 1.0 mg/dL (0.7-1.3) Estimated GFR (Cockcroft-Gault) 110.2 110.2 Glucose Level 116 mg/dL (70-99) 112 mg/dL (70-99) Calcium Level 8.6 mg/dL (8.5-10.1) 9.3 mg/dL (8.5-10.1) Laboratory Tests Test 12/11/20 06:40 White Blood Count 7.9 x10^3/uL (4.0-11.0) Red Blood Count 3.93 x10^6/uL (4.30-5.70) Hemoglobin 11.8 g/dL (13.0-17.5) Hematocrit 36.2 % (39.0-53.0) Mean Corpuscular Volume 92 fL (79-100) Mean Corpuscular Hemoglobin 30 pg (25-35) Mean Corpuscular Hemoglobin Concent 33 g/dL (31-37) Red Cell Distribution Width 13.6 % (11.5-14.5) Platelet Count 244 x10^3/uL (140-400) Neutrophils (%) (Auto) 59 % (31-73) Lymphocytes (%) (Auto) 26 % (24-48) Monocytes (%) (Auto) 12 % (0-9) Eosinophils (%) (Auto) 2 % (0-3) Basophils (%) (Auto) 0 % (0-3) Neutrophils # (Auto) 4.7 x10^3/uL (1.8-7.7) Lymphocytes # (Auto) 2.1 x10^3/uL (1.0-4.8) Monocytes # (Auto) 1.0 x10^3/uL (0.0-1.1) Eosinophils # (Auto) 0.2 x10^3/uL (0.0-0.7) Basophils # (Auto) 0.0 x10^3/uL (0.0-0.2) Sodium Level 141 mmol/L (136-145) Potassium Level 3.7 mmol/L (3.5-5.1) Chloride Level 103 mmol/L (98-107) Carbon Dioxide Level 28 mmol/L (21-32) Anion Gap 10 (6-14) Blood Urea Nitrogen 11 mg/dL (8-26) Creatinine 1.0 mg/dL (0.7-1.3) Estimated GFR (Cockcroft-Gault) 110.2 Glucose Level 112 mg/dL (70-99) Calcium Level 9.3 mg/dL (8.5-10.1) Assessment/Plan leave ng out, npo today can start clears in AM Justicifation of Admission Dx: Justifications for Admission: Justification of Admission Dx: Yes BENNY SOLITARIO MD 12/11/20 1027: SURGICAL PROGRESS NOTE Assessment/Plan Agree with Kathleen assessment and plan ERNESTO BRUNNER APRN Dec 11, 2020 10:08 BENNY SOLITARIO MD Dec 11, 2020 10:27
[2020-12-11 11:29] VITALS: BP 130/76
--- NOTE | 2020-12-11 14:48 | PDOC ---
[employer] PROGRESS NOTE Date of Service DOS: DATE: 12/11/20 TIME: 14:46 Chief Complaint Chief Complaint Perforated gastric ulcer History HIV Plan: Consultation placed to general surgery We will continue to provide pain medication and antiemetics We will keep n.p.o. barring general surgery evaluation for possible surgical intervention We will also place consult to GI FEN - NPO PPX - Heparin FULL CODE Dispo - inpatient for above History of Present Illness History of Present Illness Patient is 25-year-old male with past medical history HIV, presents as a transfer from [facility] due to perforated gastric ulcer. He reports right upper quadrant and epigastric pain over the past 3 days, with associated nausea and vomiting. He states his pain is aggravated by movement. He initially took Tylenol for symptoms without improvement. Upon arrival in [facility] ER he was given morphine and IV fluids. Initial imaging with CT abdomen/pelvis showed moderate volume of pneumoperitoneum in the upper abdomen, suspicious for perforated gastric or duodenal ulcer. General surgery was notified at [facility], and patient was accepted in transfer for higher level of care. 12/10: POD #1, s/p exploratory laparotomy with closure of duodenal ulcer and Theodore patch. Afebrile. Had NG placed yesterday for bowel rest. Feels the need to "poot"; denies bowel movement. We will continue IV antibiotics and PPI. 12/11: POD #2, s/p exploratory laparotomy with closure of duodenal ulcer and Theodore patch. NG tube apparently came out accidentally overnight. We will leave NG tube out and initiate clears tomorrow. Continue IV antibiotics. Vitals/I&O Vitals/I&O: Vital Signs Date Time Temp Pulse Resp B/P (MAP) Pulse Ox O2 Delivery O2 Flow Rate FiO2 12/11/20 11:31 Room Air 12/11/20 11:29 98.6 54 18 130/76 (94) 96 98.6 I & O 12/10/20 12/10/20 12/11/20 15:00 23:00 07:00 Intake Total 0 ml 960 ml Output Total 820 ml 250 ml Balance -820 ml 710 ml Physical Exam General: Alert, Oriented X3, Cooperative Heart: Regular rate, No murmurs Lungs: Clear Abdomen: Soft, Other (stacia serosang, dressing dry) Extremities: No clubbing, No cyanosis, No edema Skin: No rashes, No significant lesion Labs Labs: Laboratory Tests Test 12/11/20 06:40 White Blood Count 7.9 x10^3/uL (4.0-11.0) Red Blood Count 3.93 x10^6/uL (4.30-5.70) Hemoglobin 11.8 g/dL (13.0-17.5) Hematocrit 36.2 % (39.0-53.0) Mean Corpuscular Volume 92 fL (79-100) Mean Corpuscular Hemoglobin 30 pg (25-35) Mean Corpuscular Hemoglobin Concent 33 g/dL (31-37) Red Cell Distribution Width 13.6 % (11.5-14.5) Platelet Count 244 x10^3/uL (140-400) Neutrophils (%) (Auto) 59 % (31-73) Lymphocytes (%) (Auto) 26 % (24-48) Monocytes (%) (Auto) 12 % (0-9) Eosinophils (%) (Auto) 2 % (0-3) Basophils (%) (Auto) 0 % (0-3) Neutrophils # (Auto) 4.7 x10^3/uL (1.8-7.7) Lymphocytes # (Auto) 2.1 x10^3/uL (1.0-4.8) Monocytes # (Auto) 1.0 x10^3/uL (0.0-1.1) Eosinophils # (Auto) 0.2 x10^3/uL (0.0-0.7) Basophils # (Auto) 0.0 x10^3/uL (0.0-0.2) Sodium Level 141 mmol/L (136-145) Potassium Level 3.7 mmol/L (3.5-5.1) Chloride Level 103 mmol/L (98-107) Carbon Dioxide Level 28 mmol/L (21-32) Anion Gap 10 (6-14) Blood Urea Nitrogen 11 mg/dL (8-26) Creatinine 1.0 mg/dL (0.7-1.3) Estimated GFR (Cockcroft-Gault) 110.2 Glucose Level 112 mg/dL (70-99) Calcium Level 9.3 mg/dL (8.5-10.1) Comment Review of Relevant I have reviewed the following items marcelina (where applicable) has been applied. Justifications for Admission General Conditions Other justification for admit: Perforated gastric ulcer Other Justification WILFRED KING MD Dec 11, 2020 14:48
[2020-12-11 15:04] VITALS: BP 134/83
[2020-12-11] MEDS: ONDANSETRON PF 4 MG/2 ML VIAL. IVP PRN ×2 (17:08→23:29)
[2020-12-11 19:30] VITALS: BP 134/86
[2020-12-11 23:05] VITALS: BP 136/86
[2020-12-11] MEDS: ZOLPIDEM 5 MG TABLET. PO PRN (23:57)
[2020-12-12 04:28] VITALS: BP 126/85
[2020-12-12] MEDS: AA 4.25 %/CALCIUM/LYTES/D5W 1,000 ML IV SCH ×2 (05:00→13:12)
[2020-12-12] MEDS: MORPHINE SULFATE 2 MG/ML INJ. IV PRN ×3 (05:10→20:52)
[2020-12-12] MEDS: HEPARIN for SUB-Q USE 5,000 UNIT/ML VIAL. SQ SCH ×3 (05:10→21:07)
[2020-12-12 07:00] VITALS: BP 134/88
[2020-12-12 07:12] LABS: BASO # 0.1 x10^3/uL (0.0-0.2); BASO % 1 % (0-3); EOS # 0.4 x10^3/uL (0.0-0.7); EOS % 6 % (0-3); HEMATOCRIT 36.9 % (39.0-53.0); HEMOGLOBIN 12.4 g/dL (13.0-17.5); LYMPH # 2.1 x10^3/uL (1.0-4.8); LYMPH % 31 % (24-48); MEAN CORPUSCULAR HEMOGLOBIN 31 pg (25-35); MEAN CORPUSCULAR HGB CONC 34 g/dL (31-37); MEAN CORPUSCULAR VOLUME 92 fL (79-100); MONO # 0.8 x10^3/uL (0.0-1.1); MONO % 11 % (0-9); NEUT # 3.6 x10^3/uL (1.8-7.7); NEUT % 52 % (31-73); PLATELET COUNT 267 x10^3/uL (140-400); RED BLOOD COUNT 4.02 x10^6/uL (4.30-5.70); RED CELL DISTRIBUTION WIDTH 13.6 % (11.5-14.5); WHITE BLOOD COUNT 6.9 x10^3/uL (4.0-11.0)
[2020-12-12 07:26] LABS: CALCIUM 9.3 mg/dL (8.5-10.1); CREATININE 0.9 mg/dL (0.7-1.3); GFR 124.4; POTASSIUM 3.8 mmol/L (3.5-5.1)
[2020-12-12] MEDS: PANTOPRAZOLE IV PUSH 40 MG VIAL. IVP SCH (09:12)
[2020-12-12] MEDS: SUCRALFATE 1 GM/10 ML ORAL.SUSP. NG SCH ×4 (09:12→20:49)
--- NOTE | 2020-12-12 10:04 | PDOC ---
[employer] PROGRESS NOTE Date of Service DOS: DATE: 12/12/20 TIME: 10:03 Chief Complaint Chief Complaint Perforated gastric ulcer History HIV Plan: Consultation placed to general surgery We will continue to provide pain medication and antiemetics We will keep n.p.o. barring general surgery evaluation for possible surgical intervention We will also place consult to GI FEN - NPO PPX - Heparin FULL CODE Dispo - inpatient for above History of Present Illness History of Present Illness Patient is 25-year-old male with past medical history HIV, presents as a transfer from [facility] due to perforated gastric ulcer. He reports right upper quadrant and epigastric pain over the past 3 days, with associated nausea and vomiting. He states his pain is aggravated by movement. He initially took Tylenol for symptoms without improvement. Upon arrival in [facility] ER he was given morphine and IV fluids. Initial imaging with CT abdomen/pelvis showed moderate volume of pneumoperitoneum in the upper abdomen, suspicious for perforated gastric or duodenal ulcer. General surgery was notified at [facility], and patient was accepted in transfer for higher level of care. 12/10: POD #1, s/p exploratory laparotomy with closure of duodenal ulcer and Theodore patch. Afebrile. Had NG placed yesterday for bowel rest. Feels the need to "poot"; denies bowel movement. We will continue IV antibiotics and PPI. 12/11: POD #2, s/p exploratory laparotomy with closure of duodenal ulcer and Theodore patch. NG tube apparently came out accidentally overnight. We will leave NG tube out and initiate clears tomorrow. Continue IV antibiotics. 12/12: POD #3. Will initiate clears with diet today. Continue IV antibiotics. Continue to follow general surgery recommendations. TSACIA drain in place draining scant light red fluid. If tolerates clears, he is requesting to resume his Biktarvy and antidepressant. Vitals/I&O Vitals/I&O: Vital Signs Date Time Temp Pulse Resp B/P (MAP) Pulse Ox O2 Delivery O2 Flow Rate FiO2 12/12/20 07:00 98.1 51 16 134/88 (103) 95 Room Air 98.1 12/12/20 05:10 10.0 I & O 12/11/20 12/11/20 12/12/20 15:00 23:00 07:00 Intake Total 0 ml 0 ml 240 ml Output Total 425 ml 500 ml 710 ml Balance -425 ml -500 ml -470 ml Physical Exam General: Alert, Oriented X3, Cooperative Heart: Regular rate, No murmurs Lungs: Clear Abdomen: Soft, Other (stacia serosang, dressing dry) Extremities: No clubbing, No cyanosis, No edema Skin: No rashes, No significant lesion Labs Labs: Laboratory Tests Test 12/12/20 06:35 White Blood Count 6.9 x10^3/uL (4.0-11.0) Red Blood Count 4.02 x10^6/uL (4.30-5.70) Hemoglobin 12.4 g/dL (13.0-17.5) Hematocrit 36.9 % (39.0-53.0) Mean Corpuscular Volume 92 fL (79-100) Mean Corpuscular Hemoglobin 31 pg (25-35) Mean Corpuscular Hemoglobin Concent 34 g/dL (31-37) Red Cell Distribution Width 13.6 % (11.5-14.5) Platelet Count 267 x10^3/uL (140-400) Neutrophils (%) (Auto) 52 % (31-73) Lymphocytes (%) (Auto) 31 % (24-48) Monocytes (%) (Auto) 11 % (0-9) Eosinophils (%) (Auto) 6 % (0-3) Basophils (%) (Auto) 1 % (0-3) Neutrophils # (Auto) 3.6 x10^3/uL (1.8-7.7) Lymphocytes # (Auto) 2.1 x10^3/uL (1.0-4.8) Monocytes # (Auto) 0.8 x10^3/uL (0.0-1.1) Eosinophils # (Auto) 0.4 x10^3/uL (0.0-0.7) Basophils # (Auto) 0.1 x10^3/uL (0.0-0.2) Sodium Level 139 mmol/L (136-145) Potassium Level 3.8 mmol/L (3.5-5.1) Chloride Level 103 mmol/L (98-107) Carbon Dioxide Level 28 mmol/L (21-32) Anion Gap 8 (6-14) Blood Urea Nitrogen 13 mg/dL (8-26) Creatinine 0.9 mg/dL (0.7-1.3) Estimated GFR (Cockcroft-Gault) 124.4 Glucose Level 96 mg/dL (70-99) Calcium Level 9.3 mg/dL (8.5-10.1) Comment Review of Relevant I have reviewed the following items marcelina (where applicable) has been applied. Justifications for Admission General Conditions Other justification for admit: Perforated gastric ulcer Other Justification WILFRED KING MD Dec 12, 2020 10:04
[2020-12-12 11:00] VITALS: BP 138/83
--- NOTE | 2020-12-12 13:36 | PDOC ---
PROGRESS NOTES Date of Service DATE: 12/12/20 TIME: 13:35 Subjective Subjective doing well, started on clears Objective Objective Vital Signs Date Time Temp Pulse Resp B/P (MAP) Pulse Ox O2 Delivery O2 Flow Rate FiO2 12/12/20 11:43 95 Room Air 10.0 12/12/20 11:00 98.2 51 17 138/83 (101) 98.2 Intake and Output 12/12/20 07:00 Intake Total 240 ml Output Total 1635 ml Balance -1395 ml Intake Oral 240 ml Output Urine Total 1625 ml Drainage Total 10 ml Physical Exam Abdomen: Soft Plan Plan of Care postop care Comment Review of Relevant I have reviewed the following items marcelina (where applicable) has been applied. Labs Laboratory Tests Test 12/11/20 06:40 12/12/20 06:35 White Blood Count 7.9 x10^3/uL (4.0-11.0) 6.9 x10^3/uL (4.0-11.0) Red Blood Count 3.93 x10^6/uL (4.30-5.70) 4.02 x10^6/uL (4.30-5.70) Hemoglobin 11.8 g/dL (13.0-17.5) 12.4 g/dL (13.0-17.5) Hematocrit 36.2 % (39.0-53.0) 36.9 % (39.0-53.0) Mean Corpuscular Volume 92 fL (79-100) 92 fL (79-100) Mean Corpuscular Hemoglobin 30 pg (25-35) 31 pg (25-35) Mean Corpuscular Hemoglobin Concent 33 g/dL (31-37) 34 g/dL (31-37) Red Cell Distribution Width 13.6 % (11.5-14.5) 13.6 % (11.5-14.5) Platelet Count 244 x10^3/uL (140-400) 267 x10^3/uL (140-400) Neutrophils (%) (Auto) 59 % (31-73) 52 % (31-73) Lymphocytes (%) (Auto) 26 % (24-48) 31 % (24-48) Monocytes (%) (Auto) 12 % (0-9) 11 % (0-9) Eosinophils (%) (Auto) 2 % (0-3) 6 % (0-3) Basophils (%) (Auto) 0 % (0-3) 1 % (0-3) Neutrophils # (Auto) 4.7 x10^3/uL (1.8-7.7) 3.6 x10^3/uL (1.8-7.7) Lymphocytes # (Auto) 2.1 x10^3/uL (1.0-4.8) 2.1 x10^3/uL (1.0-4.8) Monocytes # (Auto) 1.0 x10^3/uL (0.0-1.1) 0.8 x10^3/uL (0.0-1.1) Eosinophils # (Auto) 0.2 x10^3/uL (0.0-0.7) 0.4 x10^3/uL (0.0-0.7) Basophils # (Auto) 0.0 x10^3/uL (0.0-0.2) 0.1 x10^3/uL (0.0-0.2) Sodium Level 141 mmol/L (136-145) 139 mmol/L (136-145) Potassium Level 3.7 mmol/L (3.5-5.1) 3.8 mmol/L (3.5-5.1) Chloride Level 103 mmol/L (98-107) 103 mmol/L (98-107) Carbon Dioxide Level 28 mmol/L (21-32) 28 mmol/L (21-32) Anion Gap 10 (6-14) 8 (6-14) Blood Urea Nitrogen 11 mg/dL (8-26) 13 mg/dL (8-26) Creatinine 1.0 mg/dL (0.7-1.3) 0.9 mg/dL (0.7-1.3) Estimated GFR (Cockcroft-Gault) 110.2 124.4 Glucose Level 112 mg/dL (70-99) 96 mg/dL (70-99) Calcium Level 9.3 mg/dL (8.5-10.1) 9.3 mg/dL (8.5-10.1) Laboratory Tests Test 12/12/20 06:35 White Blood Count 6.9 x10^3/uL (4.0-11.0) Red Blood Count 4.02 x10^6/uL (4.30-5.70) Hemoglobin 12.4 g/dL (13.0-17.5) Hematocrit 36.9 % (39.0-53.0) Mean Corpuscular Volume 92 fL (79-100) Mean Corpuscular Hemoglobin 31 pg (25-35) Mean Corpuscular Hemoglobin Concent 34 g/dL (31-37) Red Cell Distribution Width 13.6 % (11.5-14.5) Platelet Count 267 x10^3/uL (140-400) Neutrophils (%) (Auto) 52 % (31-73) Lymphocytes (%) (Auto) 31 % (24-48) Monocytes (%) (Auto) 11 % (0-9) Eosinophils (%) (Auto) 6 % (0-3) Basophils (%) (Auto) 1 % (0-3) Neutrophils # (Auto) 3.6 x10^3/uL (1.8-7.7) Lymphocytes # (Auto) 2.1 x10^3/uL (1.0-4.8) Monocytes # (Auto) 0.8 x10^3/uL (0.0-1.1) Eosinophils # (Auto) 0.4 x10^3/uL (0.0-0.7) Basophils # (Auto) 0.1 x10^3/uL (0.0-0.2) Sodium Level 139 mmol/L (136-145) Potassium Level 3.8 mmol/L (3.5-5.1) Chloride Level 103 mmol/L (98-107) Carbon Dioxide Level 28 mmol/L (21-32) Anion Gap 8 (6-14) Blood Urea Nitrogen 13 mg/dL (8-26) Creatinine 0.9 mg/dL (0.7-1.3) Estimated GFR (Cockcroft-Gault) 124.4 Glucose Level 96 mg/dL (70-99) Calcium Level 9.3 mg/dL (8.5-10.1) Medications Current Medications Morphine Sulfate (Morphine Sulfate) 2 mg PRN Q2HR PRN IV MODERATE PAIN 4-6 Last administered on 12/12/20at 10:43; Start 12/09/20 at 02:00 Morphine Sulfate (Morphine Sulfate) 4 mg PRN Q4HRS PRN IV SEVERE PAIN 7-10 Last administered on 12/11/20at 04:58; Start 12/09/20 at 02:00 Amino Acids/ Electrolytes/ Dextrose 1,000 ml @ 80 mls/hr [id number] IV Last admin istered on 12/12/20at 13:12; Start 12/09/20 at 02:00 Ondansetron HCl (Zofran) 4 mg PRN Q6HRS PRN IVP NAUSEA/VOMITING 1ST CHOICE Last administered on 12/09/20at 02:38; Start 12/09/20 at 02:30; Stop 12/09/20 at 10:46; Status DC Pantoprazole Sodium (PROTONIX VIAL for IV PUSH) 40 mg DAILYAC IVP Last administered on 12/12/20at 09:12; Start 12/09/20 at 07:30 Pantoprazole Sodium (PROTONIX VIAL for IV PUSH) 40 mg 1X ONCE IVP Last administered on 12/09/20at 04:59; Start 12/09/20 at 04:00; Stop 12/09/20 at 04:01; Status DC Levofloxacin/ Dextrose 100 ml @ 100 mls/hr DAILY05 IV Last administered on 12/12/20at 04:58; Start 12/09/20 at 04:00 Metronidazole 100 ml @ 100 mls/hr Q12HR IV Last administered on 12/12/20at 09:12; Start 12/09/20 at 09:00 Metronidazole 100 ml @ 100 mls/hr 1X ONCE IV Last administered on 12/09/20at 04:51; Start 12/09/20 at 04:00; Stop 12/09/20 at 04:59; Status DC Ondansetron HCl (Zofran) 4 mg PRN Q6HRS PRN IVP NAUSEA/VOMITING Last administered on 12/11/20at 23:29; Start 12/09/20 at 07:30 Al Hydroxide/Mg Hydroxide (Mylanta Plus Xs) 30 ml PRN Q3HRS PRN PO HEARTBURN / GAS; Start 12/09/20 at 07:30 Calcium Carbonate/ Glycine (Tums) 500 mg PRN Q3HRS PRN PO UPSET STOMACH; Start 12/09/20 at 07:30 Zolpidem Tartrate (Ambien) 5 mg PRN QHS PRN PO INSOMNIA, MAY REPEAT IN 1HR Last administered on 12/11/20at 23:57; Start 12/09/20 at 07:30 Acetaminophen (Tylenol) 650 mg PRN Q6HRS PRN PO Headaches, Temp > 101.5F; Start 12/09/20 at 07:30 Magnesium Hydroxide (Milk Of Magnesia) 2,400 mg PRN Q12HR PRN PO CONSTIPATION; Start 12/09/20 at 07:30 Heparin Sodium (Porcine) (Heparin Sodium) 5,000 unit Q8HRS SQ Last administered on 12/12/20at 13:11; Start 12/09/20 at 14:00 Propofol (Diprivan) 200 mg STK-MED ONCE IV ; Start 12/09/20 at 08:30; Stop 12/09/20 at 08:31; Status DC Lidocaine HCl (Lidocaine Pf 2% Vial) 5 ml STK-MED ONCE .ROUTE ; Start 12/09/20 at 08:31; Stop 12/09/20 at 08:31; Status DC Dexamethasone Sodium Phosphate (Decadron) 4 mg STK-MED ONCE .ROUTE ; Start 12/09/20 at 08:31; Stop 12/09/20 at 08:31; Status DC Ondansetron HCl (Zofran) 4 mg STK-MED ONCE .ROUTE ; Start 12/09/20 at 08:31; Stop 12/09/20 at 08:31; Status DC Rocuronium [place] (Zemuron) 50 mg STK-MED ONCE .ROUTE ; Start 12/09/20 at 08:31; Stop 12/09/20 at 08:31; Status DC Fentanyl Citrate (Fentanyl 2ml Vial) 100 mcg STK-MED ONCE .ROUTE ; Start 12/09/20 at 09:20; Stop 12/09/20 at 09:21; Status DC Midazolam HCl (Versed) 2 mg STK-MED ONCE .ROUTE ; Start 12/09/20 at 09:21; Stop 12/09/20 at 09:21; Status DC Fentanyl Citrate (Fentanyl 2ml Vial) 100 mcg STK-MED ONCE .ROUTE ; Start 12/09/20 at 10:27; Stop 12/09/20 at 10:27; Status DC Famotidine (Pepcid Vial) 20 mg STK-MED ONCE .ROUTE ; Start 12/09/20 at 10:28; Stop 12/09/20 at 10:28; Status DC Neostigmine [place] (Neostigmine Methylsulfate) 5 mg STK-MED ONCE .ROUTE ; Start 12/09/20 at 10:36; Stop 12/09/20 at 10:36; Status DC Propofol (Diprivan) 200 mg STK-MED ONCE IV ; Start 12/09/20 at 10:52; Stop 12/09/20 at 10:52; Status DC Sucralfate (Carafate Oral Susp) 1 gm QID NG Last administered on 12/12/20at 13:09; Start 12/09/20 at 13:00 Prochlorperazine Edisylate (Compazine) 10 mg STK-MED ONCE .ROUTE ; Start 12/09/20 at 11:44; Stop 12/09/20 at 11:44; Status DC Fentanyl Citrate (Fentanyl 2ml Vial) 25 mcg PRN Q5MIN PRN IVP MILD PAIN 1-3; Start 12/09/20 at 11:45; Stop 12/10/20 at 11:44; Status DC Fentanyl Citrate (Fentanyl 2ml Vial) 50 mcg PRN Q5MIN PRN IVP MODERATE PAIN 4-6 Last administered on 12/09/20at 21:52; Start 12/09/20 at 11:45; Stop 12/10/20 at 11:44; Status DC Morphine Sulfate (Morphine Sulfate) 1 mg PRN Q10MIN PRN IVP SEVERE PAIN 7-10 Last administered on 12/09/20at 13:19; Start 12/09/20 at 11:45; Stop 12/10/20 at 11:44; Status DC Ringer's Solution 1,000 ml @ 30 mls/hr Q24H IV ; Start 12/09/20 at 11:45; Stop 12/09/20 at 23:44; Status DC Hydromorphone HCl (Dilaudid) 0.5 mg PRN Q10MIN PRN IVP SEVERE PAIN 7-10, 2nd CHOICE; Start 12/09/20 at 11:45; Stop 12/10/20 at 11:44; Status DC Prochlorperazine Edisylate (Compazine) 5 mg PACU PRN PRN IVP NAUSEA, MRX1 Last administered on 12/09/20at 13:18; Start 12/09/20 at 11:45; Stop 12/10/20 at 11:44; Status DC Sodium Chloride 1,000 ml @ 125 mls/hr 1X ONCE IV Last administered on 12/09/20at 11:30; Start 12/09/20 at 11:30; Stop 12/09/20 at 19:29; Status DC Hydralazine HCl (Apresoline Inj) 10 mg PRN Q4HRS PRN IVP ELEVATED BP, SEE COMMENTS; Start 12/09/20 at 12:45 Phenol (Chloraseptic) 1 spray PRN Q2HR PRN PO SORE THROAT Last administered on 12/10/20at 12:36; Start 12/10/20 at 09:30 Vitals/I & O Vital Sign - Last 24 Hours 12/11/20 12/11/20 12/11/20 12/11/20 15:04 17:08 18:16 19:30 Temp 98.9 98.3 98.9 98.3 Pulse 51 62 Resp 18 18 B/P (MAP) 134/83 (100) 134/86 (102) Pulse Ox 96 94 O2 Delivery Room Air Room Air Room Air Room Air 12/11/20 12/11/20 12/11/20 12/11/20 20:00 21:24 22:42 23:05 Temp 98.5 98.5 Pulse 51 Resp 16 16 18 B/P (MAP) 136/86 (103) Pulse Ox 98 98 96 O2 Delivery Room Air Room Air Room Air Room Air 12/12/20 12/12/20 12/12/20 12/12/20 04:28 05:10 05:49 07:00 Temp 98.3 98.1 98.3 98.1 Pulse 60 51 Resp 18 16 16 B/P (MAP) 126/85 (99) 134/88 (103) Pulse Ox 95 95 95 95 O2 Delivery Room Air Room Air Room Air Room Air O2 Flow Rate 10.0 12/12/20 12/12/20 12/12/20 08:00 11:00 11:43 Temp 98.2 98.2 Pulse 51 Resp 17 B/P (MAP) 138/83 (101) Pulse Ox 97 95 O2 Delivery Room Air Room Air Room Air O2 Flow Rate 10.0 Intake and Output 12/11/20 12/11/20 12/12/20 15:00 23:00 07:00 Intake Total 0 ml 0 ml 240 ml Output Total 425 ml 500 ml 710 ml Balance -425 ml -500 ml -470 ml Justifications for Admission General Conditions Other justification for admit: Perforated gastric ulcer Other Justification TIM TREJO MD Dec 12, 2020 13:35
[2020-12-12 15:00] VITALS: BP 123/91
[2020-12-12] MEDS ORDERED: BICT1TAB PO (16:06)
[2020-12-12] MEDS ORDERED: SERT100T PO (16:07)
[2020-12-12 19:00] VITALS: BP 124/71
[2020-12-12] MEDS: SERTRALINE 50 MG TABLET. PO SCH (20:49)
[2020-12-12 23:00] VITALS: BP 125/67
[2020-12-13 03:00] VITALS: BP 126/71
[2020-12-13 07:00] VITALS: BP 129/84
[2020-12-13] MEDS: HEPARIN for SUB-Q USE 5,000 UNIT/ML VIAL. SQ SCH ×2 (07:49→13:10)
[2020-12-13 07:53] LABS: BASO # 0.1 x10^3/uL (0.0-0.2); BASO % 1 % (0-3); EOS # 0.3 x10^3/uL (0.0-0.7); EOS % 5 % (0-3); HEMATOCRIT 39.5 % (39.0-53.0); HEMOGLOBIN 13.2 g/dL (13.0-17.5); LYMPH % 32 % (24-48); MEAN CORPUSCULAR HEMOGLOBIN 31 pg (25-35); MEAN CORPUSCULAR HGB CONC 33 g/dL (31-37); MEAN CORPUSCULAR VOLUME 92 fL (79-100); MONO # 0.6 x10^3/uL (0.0-1.1); MONO % 10 % (0-9); NEUT # 3.2 x10^3/uL (1.8-7.7); NEUT % 52 % (31-73); PLATELET COUNT 336 x10^3/uL (140-400); RED BLOOD COUNT 4.29 x10^6/uL (4.30-5.70); RED CELL DISTRIBUTION WIDTH 13.4 % (11.5-14.5); WHITE BLOOD COUNT 6.2 x10^3/uL (4.0-11.0)
[2020-12-13] MEDS: SUCRALFATE 1 GM/10 ML ORAL.SUSP. NG SCH ×3 (08:30→16:20)
[2020-12-13] MEDS: SERTRALINE 50 MG TABLET. PO SCH (08:31)
[2020-12-13] MEDS: PANTOPRAZOLE IV PUSH 40 MG VIAL. IVP SCH (08:31)
[2020-12-13 08:32] LABS: CREATININE 0.8 mg/dL (0.7-1.3); GFR 142.5; POTASSIUM 3.9 mmol/L (3.5-5.1)
[2020-12-13] MEDS: AA 4.25 %/CALCIUM/LYTES/D5W 1,000 ML IV SCH (08:32)
--- NOTE | 2020-12-13 09:42 | PDOC ---
[employer] PROGRESS NOTE Date of Service DOS: DATE: 12/13/20 TIME: 09:36 Chief Complaint Chief Complaint Perforated gastric ulcer History HIV Plan: Consultation placed to general surgery We will continue to provide pain medication and antiemetics We will keep n.p.o. barring general surgery evaluation for possible surgical intervention We will also place consult to GI FEN - NPO PPX - Heparin FULL CODE Dispo - inpatient for above History of Present Illness History of Present Illness Patient is 25-year-old male with past medical history HIV, presents as a transfer from [facility] due to perforated gastric ulcer. He reports right upper quadrant and epigastric pain over the past 3 days, with associated nausea and vomiting. He states his pain is aggravated by movement. He initially took Tylenol for symptoms without improvement. Upon arrival in [facility] ER he was given morphine and IV fluids. Initial imaging with CT abdomen/pelvis showed moderate volume of pneumoperitoneum in the upper abdomen, suspicious for perforated gastric or duodenal ulcer. General surgery was notified at [facility], and patient was accepted in transfer for higher level of care. 12/10: POD #1, s/p exploratory laparotomy with closure of duodenal ulcer and Theodore patch. Afebrile. Had NG placed yesterday for bowel rest. Feels the need to "poot"; denies bowel movement. We will continue IV antibiotics and PPI. 12/11: POD #2, s/p exploratory laparotomy with closure of duodenal ulcer and Theodore patch. NG tube apparently came out accidentally overnight. We will leave NG tube out and initiate clears tomorrow. Continue IV antibiotics. 12/12: POD #3. Will initiate clears with diet today. Continue IV antibiotics. Continue to follow general surgery recommendations. SARAH drain in place draining scant light red fluid. If tolerates clears, he is requesting to resume his Biktarvy and antidepressant. 12/13: Started on clears yesterday, tolerated well. Continue IV antibiotics. SARAH drain in place. Home medications were resumed. Will advance to full liquid diet later today. Abdominal SARAH drain still putting out light red fluid. Continue postop care. Vitals/I&O Vitals/I&O: Vital Signs Date Time Temp Pulse Resp B/P (MAP) Pulse Ox O2 Delivery O2 Flow Rate FiO2 12/13/20 08:00 Room Air 12/13/20 07:00 97.3 55 16 129/84 (99) 97 97.3 12/12/20 21:22 10.0 I & O 12/12/20 12/12/20 12/13/20 15:00 23:00 07:00 Intake Total 360 ml Output Total 330 ml 100 ml 380 ml Balance -330 ml 260 ml -380 ml Physical Exam General: Alert, Oriented X3, Cooperative Heart: Regular rate, No murmurs Lungs: Clear Abdomen: Soft Extremities: No clubbing, No cyanosis, No edema Skin: No rashes, No significant lesion Labs Labs: Laboratory Tests Test 12/13/20 07:10 White Blood Count 6.2 x10^3/uL (4.0-11.0) Red Blood Count 4.29 x10^6/uL (4.30-5.70) Hemoglobin 13.2 g/dL (13.0-17.5) Hematocrit 39.5 % (39.0-53.0) Mean Corpuscular Volume 92 fL (79-100) Mean Corpuscular Hemoglobin 31 pg (25-35) Mean Corpuscular Hemoglobin Concent 33 g/dL (31-37) Red Cell Distribution Width 13.4 % (11.5-14.5) Platelet Count 336 x10^3/uL (140-400) Neutrophils (%) (Auto) 52 % (31-73) Lymphocytes (%) (Auto) 32 % (24-48) Monocytes (%) (Auto) 10 % (0-9) Eosinophils (%) (Auto) 5 % (0-3) Basophils (%) (Auto) 1 % (0-3) Neutrophils # (Auto) 3.2 x10^3/uL (1.8-7.7) Lymphocytes # (Auto) 2.0 x10^3/uL (1.0-4.8) Monocytes # (Auto) 0.6 x10^3/uL (0.0-1.1) Eosinophils # (Auto) 0.3 x10^3/uL (0.0-0.7) Basophils # (Auto) 0.1 x10^3/uL (0.0-0.2) Sodium Level 137 mmol/L (136-145) Potassium Level 3.9 mmol/L (3.5-5.1) Chloride Level 101 mmol/L (98-107) Carbon Dioxide Level 28 mmol/L (21-32) Anion Gap 8 (6-14) Blood Urea Nitrogen 14 mg/dL (8-26) Creatinine 0.8 mg/dL (0.7-1.3) Estimated GFR (Cockcroft-Gault) 142.5 Glucose Level 99 mg/dL (70-99) Calcium Level 9.0 mg/dL (8.5-10.1) Comment Review of Relevant I have reviewed the following items marcelina (where applicable) has been applied. Medications: Current Medications Medications (Trade) Dose Ordered Sig/Umesh Route PRN Reason Start Time Stop Time Status Last Admin Dose Admin Sertraline HCl (Zoloft) 100 mg DAILY PO 12/12/20 18:30 12/13/20 08:31 Justifications for Admission General Conditions Other justification for admit: Perforated gastric ulcer Other Justification WILFRED KING MD Dec 13, 2020 09:42
[2020-12-13 11:00] VITALS: BP 127/81
--- NOTE | 2020-12-13 12:08 | PDOC ---
PROGRESS NOTES Date of Service DATE: 12/13/20 TIME: 12:07 Subjective Subjective doing "ok", taking some clears well, but not wanting to progress yet Objective Objective Vital Signs Date Time Temp Pulse Resp B/P (MAP) Pulse Ox O2 Delivery O2 Flow Rate FiO2 12/13/20 11:00 97.4 53 16 127/81 (96) 98 Room Air 97.4 12/12/20 21:22 10.0 Intake and Output 12/13/20 07:00 Intake Total 360 ml Output Total 810 ml Balance -450 ml Intake Oral 360 ml Output Urine Total 750 ml Drainage Total 30 ml Other 30 ml Physical Exam Abdomen: Soft Plan Plan of Care continue clears, supportive care Comment Review of Relevant I have reviewed the following items marcelina (where applicable) has been applied. Labs Laboratory Tests Test 12/12/20 06:35 12/13/20 07:10 White Blood Count 6.9 x10^3/uL (4.0-11.0) 6.2 x10^3/uL (4.0-11.0) Red Blood Count 4.02 x10^6/uL (4.30-5.70) 4.29 x10^6/uL (4.30-5.70) Hemoglobin 12.4 g/dL (13.0-17.5) 13.2 g/dL (13.0-17.5) Hematocrit 36.9 % (39.0-53.0) 39.5 % (39.0-53.0) Mean Corpuscular Volume 92 fL (79-100) 92 fL (79-100) Mean Corpuscular Hemoglobin 31 pg (25-35) 31 pg (25-35) Mean Corpuscular Hemoglobin Concent 34 g/dL (31-37) 33 g/dL (31-37) Red Cell Distribution Width 13.6 % (11.5-14.5) 13.4 % (11.5-14.5) Platelet Count 267 x10^3/uL (140-400) 336 x10^3/uL (140-400) Neutrophils (%) (Auto) 52 % (31-73) 52 % (31-73) Lymphocytes (%) (Auto) 31 % (24-48) 32 % (24-48) Monocytes (%) (Auto) 11 % (0-9) 10 % (0-9) Eosinophils (%) (Auto) 6 % (0-3) 5 % (0-3) Basophils (%) (Auto) 1 % (0-3) 1 % (0-3) Neutrophils # (Auto) 3.6 x10^3/uL (1.8-7.7) 3.2 x10^3/uL (1.8-7.7) Lymphocytes # (Auto) 2.1 x10^3/uL (1.0-4.8) 2.0 x10^3/uL (1.0-4.8) Monocytes # (Auto) 0.8 x10^3/uL (0.0-1.1) 0.6 x10^3/uL (0.0-1.1) Eosinophils # (Auto) 0.4 x10^3/uL (0.0-0.7) 0.3 x10^3/uL (0.0-0.7) Basophils # (Auto) 0.1 x10^3/uL (0.0-0.2) 0.1 x10^3/uL (0.0-0.2) Sodium Level 139 mmol/L (136-145) 137 mmol/L (136-145) Potassium Level 3.8 mmol/L (3.5-5.1) 3.9 mmol/L (3.5-5.1) Chloride Level 103 mmol/L (98-107) 101 mmol/L (98-107) Carbon Dioxide Level 28 mmol/L (21-32) 28 mmol/L (21-32) Anion Gap 8 (6-14) 8 (6-14) Blood Urea Nitrogen 13 mg/dL (8-26) 14 mg/dL (8-26) Creatinine 0.9 mg/dL (0.7-1.3) 0.8 mg/dL (0.7-1.3) Estimated GFR (Cockcroft-Gault) 124.4 142.5 Glucose Level 96 mg/dL (70-99) 99 mg/dL (70-99) Calcium Level 9.3 mg/dL (8.5-10.1) 9.0 mg/dL (8.5-10.1) Laboratory Tests Test 12/13/20 07:10 White Blood Count 6.2 x10^3/uL (4.0-11.0) Red Blood Count 4.29 x10^6/uL (4.30-5.70) Hemoglobin 13.2 g/dL (13.0-17.5) Hematocrit 39.5 % (39.0-53.0) Mean Corpuscular Volume 92 fL (79-100) Mean Corpuscular Hemoglobin 31 pg (25-35) Mean Corpuscular Hemoglobin Concent 33 g/dL (31-37) Red Cell Distribution Width 13.4 % (11.5-14.5) Platelet Count 336 x10^3/uL (140-400) Neutrophils (%) (Auto) 52 % (31-73) Lymphocytes (%) (Auto) 32 % (24-48) Monocytes (%) (Auto) 10 % (0-9) Eosinophils (%) (Auto) 5 % (0-3) Basophils (%) (Auto) 1 % (0-3) Neutrophils # (Auto) 3.2 x10^3/uL (1.8-7.7) Lymphocytes # (Auto) 2.0 x10^3/uL (1.0-4.8) Monocytes # (Auto) 0.6 x10^3/uL (0.0-1.1) Eosinophils # (Auto) 0.3 x10^3/uL (0.0-0.7) Basophils # (Auto) 0.1 x10^3/uL (0.0-0.2) Sodium Level 137 mmol/L (136-145) Potassium Level 3.9 mmol/L (3.5-5.1) Chloride Level 101 mmol/L (98-107) Carbon Dioxide Level 28 mmol/L (21-32) Anion Gap 8 (6-14) Blood Urea Nitrogen 14 mg/dL (8-26) Creatinine 0.8 mg/dL (0.7-1.3) Estimated GFR (Cockcroft-Gault) 142.5 Glucose Level 99 mg/dL (70-99) Calcium Level 9.0 mg/dL (8.5-10.1) Medications Current Medications Morphine Sulfate (Morphine Sulfate) 2 mg PRN Q2HR PRN IV MODERATE PAIN 4-6 Last administered on 12/12/20at 20:52; Start 12/09/20 at 02:00 Morphine Sulfate (Morphine Sulfate) 4 mg PRN Q4HRS PRN IV SEVERE PAIN 7-10 Last administered on 12/11/20at 04:58; Start 12/09/20 at 02:00 Amino Acids/ Electrolytes/ Dextrose 1,000 ml @ 80 mls/hr [id number] IV Last administered on 12/13/20at 08:32; Start 12/09/20 at 02:00 Ondansetron HCl (Zofran) 4 mg PRN Q6HRS PRN IVP NAUSEA/VOMITING 1ST CHOICE Last administered on 12/09/20at 02:38; Start 12/09/20 at 02:30; Stop 12/09/20 at 10:46; Status DC Pantoprazole Sodium (PROTONIX VIAL for IV PUSH) 40 mg DAILYAC IVP Last administered on 12/13/20at 08:31; Start 12/09/20 at 07:30 Pantoprazole Sodium (PROTONIX VIAL for IV PUSH) 40 mg 1X ONCE IVP Last administered on 12/09/20at 04:59; Start 12/09/20 at 04:00; Stop 12/09/20 at 04:01; Status DC Levofloxacin/ Dextrose 100 ml @ 100 mls/hr DAILY05 IV Last administered on 12/13/20at 06:14; Start 12/09/20 at 04:00 Metronidazole 100 ml @ 100 mls/hr Q12HR IV Last administered on 12/13/20at 08:30; Start 12/09/20 at 09:00 Metronidazole 100 ml @ 100 mls/hr 1X ONCE IV Last administered on 12/09/20at 04:51; Start 12/09/20 at 04:00; Stop 12/09/20 at 04:59; Status DC Ondansetron HCl (Zofran) 4 mg PRN Q6HRS PRN IVP NAUSEA/VOMITING Last administered on 12/11/20at 23:29; Start 12/09/20 at 07:30 Al Hydroxide/Mg Hydroxide (Mylanta Plus Xs) 30 ml PRN Q3HRS PRN PO HEARTBURN / GAS; Start 12/09/20 at 07:30 Calcium Carbonate/ Glycine (Tums) 500 mg PRN Q3HRS PRN PO UPSET STOMACH; Start 12/09/20 at 07:30 Zolpidem Tartrate (Ambien) 5 mg PRN QHS PRN PO INSOMNIA, MAY REPEAT IN 1HR Last administered on 12/11/20at 23:57; Start 12/09/20 at 07:30 Acetaminophen (Tylenol) 650 mg PRN Q6HRS PRN PO Headaches, Temp > 101.5F; Star t 12/09/20 at 07:30 Magnesium Hydroxide (Milk Of Magnesia) 2,400 mg PRN Q12HR PRN PO CONSTIPATION; Start 12/09/20 at 07:30 Heparin Sodium (Porcine) (Heparin Sodium) 5,000 unit Q8HRS SQ Last administered on 12/13/20at 07:49; Start 12/09/20 at 14:00 Propofol (Diprivan) 200 mg STK-MED ONCE IV ; Start 12/09/20 at 08:30; Stop 12/09/20 at 08:31; Status DC Lidocaine HCl (Lidocaine Pf 2% Vial) 5 ml STK-MED ONCE .ROUTE ; Start 12/09/20 at 08:31; Stop 12/09/20 at 08:31; Status DC Dexamethasone Sodium Phosphate (Decadron) 4 mg STK-MED ONCE .ROUTE ; Start 12/09/20 at 08:31; Stop 12/09/20 at 08:31; Status DC Ondansetron HCl (Zofran) 4 mg STK-MED ONCE .ROUTE ; Start 12/09/20 at 08:31; Stop 12/09/20 at 08:31; Status DC Rocuronium [place] (Zemuron) 50 mg STK-MED ONCE .ROUTE ; Start 12/09/20 at 08:31; Stop 12/09/20 at 08:31; Status DC Fentanyl Citrate (Fentanyl 2ml Vial) 100 mcg STK-MED ONCE .ROUTE ; Start 12/09/20 at 09:20; Stop 12/09/20 at 09:21; Status DC Midazolam HCl (Versed) 2 mg STK-MED ONCE .ROUTE ; Start 12/09/20 at 09:21; Stop 12/09/20 at 09:21; Status DC Fentanyl Citrate (Fentanyl 2ml Vial) 100 mcg STK-MED ONCE .ROUTE ; Start 12/09/20 at 10:27; Stop 12/09/20 at 10:27; Status DC Famotidine (Pepcid Vial) 20 mg STK-MED ONCE .ROUTE ; Start 12/09/20 at 10:28; Stop 12/09/20 at 10:28; Status DC Neostigmine [place] (Neostigmine Methylsulfate) 5 mg STK-MED ONCE .ROUTE ; Start 12/09/20 at 10:36; Stop 12/09/20 at 10:36; Status DC Propofol (Diprivan) 200 mg STK-MED ONCE IV ; Start 12/09/20 at 10:52; Stop 12/09/20 at 10:52; Status DC Sucralfate (Carafate Oral Susp) 1 gm QID NG Last administered on 12/13/20at 08:30; Start 12/09/20 at 13:00 Prochlorperazine Edisylate (Compazine) 10 mg STK-MED ONCE .ROUTE ; Start 12/09/20 at 11:44; Stop 12/09/20 at 11:44; Status DC Fentanyl Citrate (Fentanyl 2ml Vial) 25 mcg PRN Q5MIN PRN IVP MILD PAIN 1-3; Start 12/09/20 at 11:45; Stop 12/10/20 at 11:44; Status DC Fentanyl Citrate (Fentanyl 2ml Vial) 50 mcg PRN Q5MIN PRN IVP MODERATE PAIN 4-6 Last administered on 12/09/20at 21:52; Start 12/09/20 at 11:45; Stop 12/10/20 at 11:44; Status DC Morphine Sulfate (Morphine Sulfate) 1 mg PRN Q10MIN PRN IVP SEVERE PAIN 7-10 Last administered on 12/09/20at 13:19; Start 12/09/20 at 11:45; Stop 12/10/20 at 11:44; Status DC Ringer's Solution 1,000 ml @ 30 mls/hr Q24H IV ; Start 12/09/20 at 11:45; Stop 12/09/20 at 23:44; Status DC Hydromorphone HCl (Dilaudid) 0.5 mg PRN Q10MIN PRN IVP SEVERE PAIN 7-10, 2nd CHOICE; Start 12/09/20 at 11:45; Stop 12/10/20 at 11:44; Status DC Prochlorperazine Edisylate (Compazine) 5 mg PACU PRN PRN IVP NAUSEA, MRX1 Last administered on 12/09/20at 13:18; Start 12/09/20 at 11:45; Stop 12/10/20 at 11:44; Status DC Sodium Chloride 1,000 ml @ 125 mls/hr 1X ONCE IV Last administered on 12/09/20at 11:30; Start 12/09/20 at 11:30; Stop 12/09/20 at 19:29; Status DC Hydralazine HCl (Apresoline Inj) 10 mg PRN Q4HRS PRN IVP ELEVATED BP, SEE COMMENTS; Start 12/09/20 at 12:45 Phenol (Chloraseptic) 1 spray PRN Q2HR PRN PO SORE THROAT Last administered on 12/10/20at 12:36; Start 12/10/20 at 09:30 Non-Formulary Medication (Bictegrav/ Emtricit/Tenofov Ala (Biktarvy 50-200-25 mg Tablet)) 25 mg DAILY PO ; Start 12/13/20 at 09:00; Status UNV Sertraline HCl (Zoloft) 100 mg DAILY PO Last administered on 12/13/20at 08:31; Start 12/12/20 at 18:30 Active Scripts Active Reported Zoloft (Sertraline Hcl) 100 Mg Tablet 1 Tab PO DAILY Biktarvy 50-200-25 mg Tablet (Bictegrav/Emtricit/Tenofov Ala) 1 Each Tablet 25 Mg PO DAILY Vitals/I & O Vital Sign - Last 24 Hours 12/12/20 12/12/20 12/12/20 12/12/20 15:00 19:00 20:38 20:52 Temp 97.3 98.6 97.3 98.6 Pulse 55 53 Resp 16 16 B/P (MAP) 123/91 (102) 124/71 (88) Pulse Ox 96 96 96 O2 Delivery Room Air Room Air Room Air Room Air O2 Flow Rate 10.0 12/12/20 12/12/20 12/13/20 12/13/20 21:22 23:00 03:00 07:00 Temp 98.1 97.8 97.3 98.1 97.8 97.3 Pulse 50 59 55 Resp 16 16 16 B/P (MAP) 125/67 (86) 126/71 (89) 129/84 (99) Pulse Ox 97 97 96 97 O2 Delivery Room Air Room Air Room Air Room Air O2 Flow Rate 10.0 12/13/20 12/13/20 08:00 11:00 Temp 97.4 97.4 Pulse 53 Resp 16 B/P (MAP) 127/81 (96) Pulse Ox 98 O2 Delivery Room Air Room Air Intake and Output 12/12/20 12/12/20 12/13/20 15:00 23:00 07:00 Intake Total 360 ml Output Total 330 ml 100 ml 380 ml Balance -330 ml 260 ml -380 ml Justifications for Admission General Conditions Other justification for admit: Perforated gastric ulcer Other Justification TIM TREJO MD Dec 13, 2020 12:08
[2020-12-13 15:00] VITALS: BP 136/82
[2020-12-13 19:00] VITALS: BP 148/78
[2020-12-13 23:00] VITALS: BP 127/81
[2020-12-14] MEDS: AA 4.25 %/CALCIUM/LYTES/D5W 1,000 ML IV SCH (00:01)
[2020-12-14] MEDS: SUCRALFATE 1 GM/10 ML ORAL.SUSP. NG SCH ×3 (00:01→12:24)
[2020-12-14] MEDS: HEPARIN for SUB-Q USE 5,000 UNIT/ML VIAL. SQ SCH ×2 (00:06→07:44)
[2020-12-14] MEDS: MORPHINE SULFATE 2 MG/ML INJ. IV PRN (01:34)
[2020-12-14 03:00] VITALS: BP 115/68
[2020-12-14 07:00] VITALS: BP 133/81
[2020-12-14 07:49] LABS: BASO # 0.1 x10^3/uL (0.0-0.2); BASO % 1 % (0-3); EOS # 0.2 x10^3/uL (0.0-0.7); EOS % 3 % (0-3); HEMATOCRIT 41.2 % (39.0-53.0); HEMOGLOBIN 13.5 g/dL (13.0-17.5); LYMPH # 2.4 x10^3/uL (1.0-4.8); LYMPH % 36 % (24-48); MEAN CORPUSCULAR HEMOGLOBIN 30 pg (25-35); MEAN CORPUSCULAR HGB CONC 33 g/dL (31-37); MEAN CORPUSCULAR VOLUME 92 fL (79-100); MONO # 0.9 x10^3/uL (0.0-1.1); MONO % 13 % (0-9); NEUT # 3.1 x10^3/uL (1.8-7.7); NEUT % 47 % (31-73); PLATELET COUNT 378 x10^3/uL (140-400); RED BLOOD COUNT 4.47 x10^6/uL (4.30-5.70); RED CELL DISTRIBUTION WIDTH 13.5 % (11.5-14.5); WHITE BLOOD COUNT 6.7 x10^3/uL (4.0-11.0)
[2020-12-14 08:11] LABS: CALCIUM 9.4 mg/dL (8.5-10.1); GFR 110.2
[2020-12-14] MEDS: PANTOPRAZOLE IV PUSH 40 MG VIAL. IVP SCH (09:18)
[2020-12-14] MEDS: SERTRALINE 50 MG TABLET. PO SCH (09:19)
--- NOTE | 2020-12-14 09:52 | PDOC ---
SURGICAL PROGRESS NOTE DATE: 12/14/20 TIME: 09:48 Subjective no pain, tolerating diet + flatus Vital Signs Vital Signs Date Time Temp Pulse Resp B/P (MAP) Pulse Ox O2 Delivery O2 Flow Rate FiO2 12/14/20 07:00 97.9 61 16 133/81 (98) 97 Room Air 97.9 12/14/20 02:04 10.0 I&O Intake and Output 12/14/20 07:00 Output Total 1150 ml Balance -1150 ml Output Urine Total 1150 ml # Voids 1 General: Alert, Oriented X3, Cooperative Abdomen: Soft, Other (dressing dry, scant serosang drainage in drain ) Labs Laboratory Tests Test 12/13/20 07:10 12/14/20 06:55 White Blood Count 6.2 x10^3/uL (4.0-11.0) 6.7 x10^3/uL (4.0-11.0) Red Blood Count 4.29 x10^6/uL (4.30-5.70) 4.47 x10^6/uL (4.30-5.70) Hemoglobin 13.2 g/dL (13.0-17.5) 13.5 g/dL (13.0-17.5) Hematocrit 39.5 % (39.0-53.0) 41.2 % (39.0-53.0) Mean Corpuscular Volume 92 fL (79-100) 92 fL (79-100) Mean Corpuscular Hemoglobin 31 pg (25-35) 30 pg (25-35) Mean Corpuscular Hemoglobin Concent 33 g/dL (31-37) 33 g/dL (31-37) Red Cell Distribution Width 13.4 % (11.5-14.5) 13.5 % (11.5-14.5) Platelet Count 336 x10^3/uL (140-400) 378 x10^3/uL (140-400) Neutrophils (%) (Auto) 52 % (31-73) 47 % (31-73) Lymphocytes (%) (Auto) 32 % (24-48) 36 % (24-48) Monocytes (%) (Auto) 10 % (0-9) 13 % (0-9) Eosinophils (%) (Auto) 5 % (0-3) 3 % (0-3) Basophils (%) (Auto) 1 % (0-3) 1 % (0-3) Neutrophils # (Auto) 3.2 x10^3/uL (1.8-7.7) 3.1 x10^3/uL (1.8-7.7) Lymphocytes # (Auto) 2.0 x10^3/uL (1.0-4.8) 2.4 x10^3/uL (1.0-4.8) Monocytes # (Auto) 0.6 x10^3/uL (0.0-1.1) 0.9 x10^3/uL (0.0-1.1) Eosinophils # (Auto) 0.3 x10^3/uL (0.0-0.7) 0.2 x10^3/uL (0.0-0.7) Basophils # (Auto) 0.1 x10^3/uL (0.0-0.2) 0.1 x10^3/uL (0.0-0.2) Sodium Level 137 mmol/L (136-145) 139 mmol/L (136-145) Potassium Level 3.9 mmol/L (3.5-5.1) 4.0 mmol/L (3.5-5.1) Chloride Level 101 mmol/L (98-107) 100 mmol/L (98-107) Carbon Dioxide Level 28 mmol/L (21-32) 28 mmol/L (21-32) Anion Gap 8 (6-14) 11 (6-14) Blood Urea Nitrogen 14 mg/dL (8-26) 13 mg/dL (8-26) Creatinine 0.8 mg/dL (0.7-1.3) 1.0 mg/dL (0.7-1.3) Estimated GFR (Cockcroft-Gault) 142.5 110.2 Glucose Level 99 mg/dL (70-99) 85 mg/dL (70-99) Calcium Level 9.0 mg/dL (8.5-10.1) 9.4 mg/dL (8.5-10.1) Laboratory Tests Test 12/14/20 06:55 White Blood Count 6.7 x10^3/uL (4.0-11.0) Red Blood Count 4.47 x10^6/uL (4.30-5.70) Hemoglobin 13.5 g/dL (13.0-17.5) Hematocrit 41.2 % (39.0-53.0) Mean Corpuscular Volume 92 fL (79-100) Mean Corpuscular Hemoglobin 30 pg (25-35) Mean Corpuscular Hemoglobin Concent 33 g/dL (31-37) Red Cell Distribution Width 13.5 % (11.5-14.5) Platelet Count 378 x10^3/uL (140-400) Neutrophils (%) (Auto) 47 % (31-73) Lymphocytes (%) (Auto) 36 % (24-48) Monocytes (%) (Auto) 13 % (0-9) Eosinophils (%) (Auto) 3 % (0-3) Basophils (%) (Auto) 1 % (0-3) Neutrophils # (Auto) 3.1 x10^3/uL (1.8-7.7) Lymphocytes # (Auto) 2.4 x10^3/uL (1.0-4.8) Monocytes # (Auto) 0.9 x10^3/uL (0.0-1.1) Eosinophils # (Auto) 0.2 x10^3/uL (0.0-0.7) Basophils # (Auto) 0.1 x10^3/uL (0.0-0.2) Sodium Level 139 mmol/L (136-145) Potassium Level 4.0 mmol/L (3.5-5.1) Chloride Level 100 mmol/L (98-107) Carbon Dioxide Level 28 mmol/L (21-32) Anion Gap 11 (6-14) Blood Urea Nitrogen 13 mg/dL (8-26) Creatinine 1.0 mg/dL (0.7-1.3) Estimated GFR (Cockcroft-Gault) 110.2 Glucose Level 85 mg/dL (70-99) Calcium Level 9.4 mg/dL (8.5-10.1) Problem List can advance diet work toward dc home, oral abx, PPI Justicifation of Admission Dx: Justifications for Admission: Justification of Admission Dx: Yes ERNESTO BRUNNER SENIOR ENGINEER Dec 14, 2020 09:52
--- NOTE | 2020-12-14 10:44 | PDOC ---
Date of Service: DATE: 12/14/20 TIME: 10:41 Subjective: Subjective: Eating okay, passing gas. Objective: Objective: Advancing diet per surgery. Vital Signs: Vital Signs Date Time Temp Pulse Resp B/P (MAP) Pulse Ox O2 Delivery O2 Flow Rate FiO2 12/14/20 07:00 97.9 61 16 133/81 (98) 97 Room Air 97.9 12/14/20 02:04 10.0 Labs: Laboratory Tests Test 12/14/20 06:55 White Blood Count 6.7 x10^3/uL Red Blood Count 4.47 x10^6/uL Hemoglobin 13.5 g/dL Hematocrit 41.2 % Mean Corpuscular Volume 92 fL Mean Corpuscular Hemoglobin 30 pg Mean Corpuscular Hemoglobin Concent 33 g/dL Red Cell Distribution Width 13.5 % Platelet Count 378 x10^3/uL Neutrophils (%) (Auto) 47 % Lymphocytes (%) (Auto) 36 % Monocytes (%) (Auto) 13 % Eosinophils (%) (Auto) 3 % Basophils (%) (Auto) 1 % Neutrophils # (Auto) 3.1 x10^3/uL Lymphocytes # (Auto) 2.4 x10^3/uL Monocytes # (Auto) 0.9 x10^3/uL Eosinophils # (Auto) 0.2 x10^3/uL Basophils # (Auto) 0.1 x10^3/uL Sodium Level 139 mmol/L Potassium Level 4.0 mmol/L Chloride Level 100 mmol/L Carbon Dioxide Level 28 mmol/L Anion Gap 11 Blood Urea Nitrogen 13 mg/dL Creatinine 1.0 mg/dL Estimated GFR (Cockcroft-Gault) 110.2 Glucose Level 85 mg/dL Calcium Level 9.4 mg/dL PE: GEN: NAD LUNGS: CTAB HEART: RRR ABD: soft, non-tender, small amount of serosang drainage NEURO/PSYCH: A & O 3 A/P: Perf DU s/p Theodore patch -- DC plans and diet per surgery/primary. Can change to PO PPI - continue long-term. Justicifation of Admission Dx: Justifications for Admission: Justification of Admission Dx: Yes LATONYA SMITH Dec 14, 2020 10:44
[2020-12-14 11:00] VITALS: BP 119/83
--- NOTE | 2020-12-14 13:00 | NUR ---
Tolerated regular diet. Up in room. No c/o at this time. Cont. monitor.
--- NOTE | 2020-12-14 13:23 | PDOC ---
[facility] PROGRESS NOTE Date of Service DOS: DATE: 12/14/20 TIME: 13:21 Chief Complaint Chief Complaint Perforated gastric ulcer History HIV Plan: Patient is status post ex lap with Theodore patch repair of perforated gastric ulcer Antibiotics with Levaquin and Flagyl Closely monitor drain output FEN -soft diet PPX - Heparin FULL CODE Dispo - inpatient for above History of Present Illness History of Present Illness Patient is 25-year-old male with past medical history HIV, presents as a transfer from [facility] due to perforated gastric ulcer. He reports right upper quadrant and epigastric pain over the past 3 days, with associated nausea and vomiting. He states his pain is aggravated by movement. He initially took Tylenol for symptoms without improvement. Upon arrival in [facility] ER he was given morphine and IV fluids. Initial imaging with CT abdomen/pelvis showed moderate volume of pneumoperitoneum in the upper abdomen, suspicious for perforated gastric or duodenal ulcer. General surgery was notified at [facility], and patient was accepted in transfer for higher level of care. 12/10: POD #1, s/p exploratory laparotomy with closure of duodenal ulcer and Theodore patch. Afebrile. Had NG placed yesterday for bowel rest. Feels the need to "poot"; denies bowel movement. We will continue IV antibiotics and PPI. 12/11: POD #2, s/p exploratory laparotomy with closure of duodenal ulcer and Theodore patch. NG tube apparently came out accidentally overnight. We will leave NG tube out and initiate clears tomorrow. Continue IV antibiotics. 12/12: POD #3. Will initiate clears with diet today. Continue IV antibiotics. Continue to follow general surgery recommendations. SARAH drain in place draining scant light red fluid. If tolerates clears, he is requesting to resume his Biktarvy and antidepressant. 12/13: Started on clears yesterday, tolerated well. Continue IV antibiotics. SARAH drain in place. Home medications were resumed. Will advance to full liquid diet later today. Abdominal SARAH drain still putting out light red fluid. Continue postop care. 12/14 Patient evaluated and examined at bedside. Doing well no major complaints inquiry about discharge home. Drain in place with some output still. Advancing to soft liquid diet today. Possible discharge later today or tomorrow. Plan of care discussed with bedside RN. Vitals/I&O Vitals/I&O: Vital Signs Date Time Temp Pulse Resp B/P (MAP) Pulse Ox O2 Delivery O2 Flow Rate FiO2 12/14/20 11:00 98.0 68 18 119/83 (95) 96 Room Air 98.0 12/14/20 02:04 10.0 I & O 12/13/20 12/13/20 12/14/20 15:00 23:00 07:00 Output Total 200 ml 950 ml Balance -200 ml -950 ml Physical Exam General: Alert, Oriented X3, Cooperative Heart: Regular rate, No murmurs Lungs: Clear Abdomen: Soft, Other (dressing dry, scant serosang drainage in drain ) Extremities: No clubbing, No cyanosis, No edema Skin: No rashes, No significant lesion Labs Labs: Laboratory Tests Test 12/14/20 06:55 White Blood Count 6.7 x10^3/uL (4.0-11.0) Red Blood Count 4.47 x10^6/uL (4.30-5.70) Hemoglobin 13.5 g/dL (13.0-17.5) Hematocrit 41.2 % (39.0-53.0) Mean Corpuscular Volume 92 fL (79-100) Mean Corpuscular Hemoglobin 30 pg (25-35) Mean Corpuscular Hemoglobin Concent 33 g/dL (31-37) Red Cell Distribution Width 13.5 % (11.5-14.5) Platelet Count 378 x10^3/uL (140-400) Neutrophils (%) (Auto) 47 % (31-73) Lymphocytes (%) (Auto) 36 % (24-48) Monocytes (%) (Auto) 13 % (0-9) Eosinophils (%) (Auto) 3 % (0-3) Basophils (%) (Auto) 1 % (0-3) Neutrophils # (Auto) 3.1 x10^3/uL (1.8-7.7) Lymphocytes # (Auto) 2.4 x10^3/uL (1.0-4.8) Monocytes # (Auto) 0.9 x10^3/uL (0.0-1.1) Eosinophils # (Auto) 0.2 x10^3/uL (0.0-0.7) Basophils # (Auto) 0.1 x10^3/uL (0.0-0.2) Sodium Level 139 mmol/L (136-145) Potassium Level 4.0 mmol/L (3.5-5.1) Chloride Level 100 mmol/L (98-107) Carbon Dioxide Level 28 mmol/L (21-32) Anion Gap 11 (6-14) Blood Urea Nitrogen 13 mg/dL (8-26) Creatinine 1.0 mg/dL (0.7-1.3) Estimated GFR (Cockcroft-Gault) 110.2 Glucose Level 85 mg/dL (70-99) Calcium Level 9.4 mg/dL (8.5-10.1) Comment Review of Relevant I have reviewed the following items marcelina (where applicable) has been applied. Justifications for Admission General Conditions Other justification for admit: Perforated gastric ulcer Other Justification LU BURCIAGA MD Dec 14, 2020 13:23
[2020-12-14] MEDS ORDERED: LEVO500T9 PO (13:34)
[2020-12-14] MEDS ORDERED: METR-34 PO (13:34)
[2020-12-14] MEDS ORDERED: PANT40TA77 PO (13:34)
--- NOTE | 2020-12-14 13:38 | PDOC3 ---
[facility]-Discharge Summary Date of Admission: Date of Admission: Dec 09, 2020 Date of Discharge: Date of Discharge: Dec 14, 2020 Admission Diagnosis: Problems: (1) Perforated gastric ulcer Discharge Diagnosis: Discharge Diagnosis: Same Consults: Consults: GI, Surgery Procedures: Procedures: Dictation: Patient is 25-year-old male admitted to the hospital through the emergency department with pneumoperitoneum. Procedure of exploratory laparotomy with repair of duodenal ulcer and Theodore patch was explained to the patient detail risk-benefit were also discussed including bleeding infection alternatives this procedure also discussed with patient who seemed to understand and gave a verbal written consent to have the procedure performed. Patient was taken to the operating room placed in the supine position general anesthesia was initiated once patient was sleeping intubated his abdomen was prepped and draped usual sterile fashion using ChloraPrep. Midline incision was made from the xiphoid process for about 6 cm this carried down through the subcutaneous tissues using electrocautery right hemostasis the fascia was opened with electrocautery peritoneum was opened Metzenbaum scissors were then further open electrocautery. There was some clear fluid which was suctioned from the abdomen the stomach was evaluated which appeared to be normal coming into the duodenum just distal to the duodenum was a small opening that actually had quite a bit of fibrinous material. 3-0 PDS was used as suture through the duodenum on the proximal distal side around the perforation the omentum was then laid over the ulcer and the sutures were tied closing the hole and attaching the omentum to the duodenum the omentum was further tacked to the duodenum with some 3-0 Vicryl intermittent sutures. A 7 Bel[place]ian flat SARAH drain was then placed through separate stab incision in the right upper quadrant laid along the duodenal sweep. This was sewn into place with a 3-0 Vicryl. The abdomen was irrigated and suctioned dry with normal saline fascia was then closed with a running oh looped PDS deep subcutaneous layer was closed with a running 3-0 Vicryl and the skin was approximated for subcuticular Monocryl Mastisol Steri-Strips and island dressings were applied. Patient was awakened and extubated operating room taken to recovery in stable condition all sponge instrument needle counts listed as correct estimated blood loss 30 mL. Hospital Course: Hospital Course: Chief Complaint Perforated gastric ulcer History HIV Plan: Patient is status post ex lap with Theodore patch repair of perforated gastric ulcer Antibiotics with Levaquin and Flagyl Closely monitor drain output FEN -soft diet PPX - Heparin FULL CODE Dispo - inpatient for above History of Present Illness History of Present Illness Patient is 25-year-old male with past medical history HIV, presents as a transfer from [facility] due to perforated gastric ulcer. He reports right upper quadrant and epigastric pain over the past 3 days, with associated nausea and vomiting. He states his pain is aggravated by movement. He initially took Tylenol for symptoms without improvement. Upon arrival in [facility] ER he was given morphine and IV fluids. Initial imaging with CT abdomen/pelvis showed moderate volume of pneumoperitoneum in the upper abdomen, suspicious for perforated gastric or duodenal ulcer. General surgery was notified at [facility], and patient was accepted in transfer for higher level of care. 12/10: POD #1, s/p exploratory laparotomy with closure of duodenal ulcer and Theodore patch. Afebrile. Had NG placed yesterday for bowel rest. Feels the need to "poot"; denies bowel movement. We will continue IV antibiotics and PPI. 12/11: POD #2, s/p exploratory laparotomy with closure of duodenal ulcer and Theodore patch. NG tube apparently came out accidentally overnight. We will leave NG tube out and initiate clears tomorrow. Continue IV antibiotics. 12/12: POD #3. Will initiate clears with diet today. Continue IV antibiotics. Continue to follow general surgery recommendations. SARAH drain in place draining scant light red fluid. If tolerates clears, he is requesting to resume his Biktarvy and antidepressant. 12/13: Started on clears yesterday, tolerated well. Continue IV antibiotics. SARAH drain in place. Home medications were resumed. Will advance to full liquid diet later today. Abdominal SARAH drain still putting out light red fluid. Continue postop care. 12/14 Patient evaluated and examined at bedside. Doing well no major complaints inquiry about discharge home. Drain in place with some output still. Advancing to soft liquid diet today. Possible discharge later today or tomorrow. Plan of care discussed with bedside RN. Cleared for d/c by surgery. Remove drain at bedside. Antibiotics and Protonix sent to patient's preferred pharmacy Disposition: Disposition/Orders: D/C to Home Activity: Activity: Resume previous activity Diet: Diet: Regular Medications: Home Meds Active Scripts Pantoprazole Sodium (PANTOPRAZOLE SODIUM ) 40 Mg Tablet.dr, 40 MG PO DAILYAC for perforated ulcer for 90 Days, #90 TAB.SR Prov:LU BURCIAGA MD 12/14/20 Metronidazole (METRONIDAZOLE) 500 Mg Tablet, 500 MG PO Q8HRS for intraabdominal coverage for 7 Days, #21 TAB Prov:LU BURCIAGA MD 12/14/20 Levofloxacin (LEVOFLOXACIN) 500 Mg Tablet, 500 MG PO DAILY06 for intrabdominal coverage for 7 Days, #7 TAB Prov:LU BURCIAGA MD 12/14/20 Reported Medications Sertraline Hcl (ZOLOFT) 100 Mg Tablet, 1 TAB PO DAILY for depression, #30 TAB 5 Refills 12/12/20 Bictegrav/Emtricit/Tenofov Ala (Biktarvy 50-200-25 mg Tablet) 1 Each Tablet, 25 MG PO DAILY for HIV, TAB 12/12/20 Scheduled Bictegrav/Emtricit/Tenofov Ala (Biktarvy 50-200-25 mg Tablet), 25 MG PO DAILY, (Reported) Levofloxacin (Levofloxacin), 500 MG PO DAILY06 Metronidazole (Metronidazole), 500 MG PO Q8HRS Pantoprazole Sodium (Pantoprazole Sodium ), 40 MG PO DAILYAC Sertraline Hcl (Zoloft), 1 TAB PO DAILY, (Reported) Justicifation of Admission Dx: Justifications for Admission: Justification of Admission Dx: Yes LU BURCIAGA MD Dec 14, 2020 13:38
[2020-12-14] MEDS ORDERED: metroNIDAZOLE 500 MG TABLET PO SCH (14:00)
[2020-12-14 15:00] VITALS: BP 125/78
--- NOTE | 2020-12-14 16:10 | NUR ---
Discharge instructions given and extra dressings. Answered questions and concerns. Verbalized understanding. Escorted out by w/c.
[2020-12-15] MEDS ORDERED: PANTOPRAZOLE 40 MG TABLET.DR. PO SCH (07:30)
== END 2020-12-14 16:10 | disposition home or self-care (01) | DRG 331 ==
LOC: 4 NORTH 00:19
PROVIDERS: ADMIT Internal Medicine; ATTEND Internal Medicine
PROC: 0DU907Z Supplement Duodenum with Autologous Tissue Substitute, Open Approach (ICD-10-PCS; principal; 2020-12-09 10:30)
DX: K26.5 Chronic or unspecified duodenal ulcer with perforation (principal); F17.210 Nicotine dependence, cigarettes, uncomplicated; F32.A Depression, unspecified; Z20.822 Contact with and (suspected) exposure to COVID-19; Z21 Asymptomatic human immunodeficiency virus [HIV] infection status; Z88.0 Allergy status to penicillin; D64.9 Anemia, unspecified
CPT/HCPCS: 36415; 74018; 80048; 85025; 85610; 85730; A4314; A4364; A4452; A4930; A6402; C9113; J0780; J1100; J1644; J1956; J2250; J2270; J2405; J2704; J2710; J3010; J3490; J7030; G0378